=== PATIENT | female | born 1970 | race Caucasian/White ===

== ENCOUNTER 2016-10-21 19:44 | Observation (INO) | payer BC ==
[~2016-10-21] VITALS: Ht 170.2 cm; Wt 86.1 kg
[~2016-10-21 19:44] MED LIST: ALBU1AER9 INH; CYAN10005 PO; DICY20TA10 PO; LEVOIUD; SENN-61 PO
[2016-10-21 20:06] VITALS: Ht 170.2 cm; Wt 86.1 kg
[2016-10-21] MEDS ORDERED: MoRPHine SULFATE 10 MG/ML CARP/VIAL IV STA (22:02)
[2016-10-21] MEDS ORDERED: ONDANSETRON INJ 2 MG/ML 2 ML VIAL IV STA (22:02)
[2016-10-21] MEDS ORDERED: SODIUM CHLORIDE 0.9% 1000ML 1,000 ML IV STA (22:02)
[2016-10-21] MEDS ORDERED: OPTIRAY 320 IV PRN (22:15)
[2016-10-21 22:49] LABS: BASO % 0.8 %; BASO ABS # 0.04 K/uL (0-0.2); COMPLETE YES; HEMATOCRIT 40.2 % (37-47); IG% 0.2 %; LYMPH % 39.3 %; LYMPH ABS # 2.05 K/uL (1.2-3.4); MEAN CELL VOLUME 88.5 fL (80-100); MEAN CORPUSCULAR HEMOGLOBIN 31.5 pg (25-34); MEAN CORPUSCULAR HGB CONC 35.6 g/dl (32-36); MEAN PLATELET VOLUME 9.6 fL (7.4-10.4); MONO % 9.8 %; NEUT % 45.9 %; PLATELET COUNT 208 K/uL (130-400); RED BLOOD COUNT 4.54 M/uL (4.2-5.4); WHITE BLOOD COUNT 5.22 K/uL (4.8-10.8)
[2016-10-21 23:03] LABS: BUN/CREATININE RATIO 17.3 (10-20); CALCIUM 9.3 mg/dl (8.5-10.1); CREATININE 0.63 mg/dl (0.60-1.20); POTASSIUM 3.5 mmol/L (3.5-5.1)
[2016-10-21] MEDS ORDERED: CYCL0.052 OPB (23:07)
[2016-10-21] MEDS ORDERED: FLNIN/ NAE (23:07)
[2016-10-21 23:17] LABS: URINE APPEARANCE CLEAR (CLEAR); URINE BILIRUBIN NEG (NEG); URINE COLOR YELLOW; URINE NITRITE NEG (NEG); URINE SPECIFIC GRAVITY 1.012 (1.000-1.030); UROBILINOGEN NEG (NEG)
[2016-10-21 23:18] LABS: MANUAL MICROSCOPIC REQUIRED? NO; REVIEW REQ? NO
[2016-10-21 23:23] LABS: PREG INTERNAL NEGATIVE QC NEG CLEAR BACKGROUND; PREG INTERNAL POSITIVE QC POS CONTROL LINE
[2016-10-22] MEDS ORDERED: MoRPHine SULFATE 2 MG/ML CARP IV STA (01:02)
[2016-10-22] MEDS ORDERED: DiphenhydrAMINE HCL 50 MG/ML VIAL IV STA (01:44)
[2016-10-22] MEDS ORDERED: FAMOTIDINE 20MG/102 ML D5W IV STA (01:44)
--- NOTE | 2016-10-22 01:49 | EMERGENCY ROOM VISIT NOTE ---
ED Visit Note First contact with patient: 01:38 This Patient was discussed with the physician administrative office assistant, Joaquin Hines PA-C. The pertinent historical and physical exam findings were confirmed. I agree with the studies ordered and with the interpretations of these studies. I agree with the disposition and care plan.
[2016-10-22] MEDS ORDERED: PROPOFOL IV EMULSION 10 MG/ML 20 ML VIAL IV ONE (04:42)
[2016-10-22] MEDS ORDERED: ONDANSETRON INJ 2 MG/ML 2 ML VIAL ONE (04:42)
[2016-10-22] MEDS ORDERED: FENTANYL CITRATE INJ 50 MCG/1 ML 2 ML VIAL ONE ×2 (04:42→05:53)
[2016-10-22] MEDS ORDERED: ROCURONIUM BROMIDE 10 MG/ML 5 ML VIAL ONE (04:42)
[2016-10-22] MEDS ORDERED: DEXAMETHASONE SOD INJ 4 MG/ML VIAL ONE (04:42)
[2016-10-22] MEDS ORDERED: LIDOCAINE HCL 2% 2 ML VIAL (20MG/ML) ONE (04:42)
[2016-10-22] MEDS ORDERED: MIDAZOLAM HCL 1 MG/ML 2ML VIAL ONE (04:42)
[2016-10-22] MEDS ORDERED: MoRPHine SULFATE 2 MG/ML CARP ONE ×3 (04:43→04:48)
--- NOTE | 2016-10-22 04:47 | History and Physical ---
History & Physical Date & Time of Service: Oct 22, 2016 at 04:25 Chief Complaint: Rlq Pain Primary Care Physician: Kyaw Khan M.D. History of Present Illness Source: patient 46 y/o female to ER with a complaint of RLQ pain. she stated that the pain began 3 days ago as an intermittent sharp stabbing pain with each episode lasting seconds to a few minutes. About 3 hours prior to presentation the pain became constant. It is exacerbated by movement. It has not been associated with nausea, vomiting dysuria or hematuria. She has a change in bowel pattern over the last 2 weeks. She stated that she normally goes every 2 to 3 days but has been going about 2 times per day. She has not had diarrhea but the stool has been soft. She reports having had "colitis" on 2 occasions in the past but the pain during those episodes was bilateral and accompanied but bloody bms. She has not had blood with her stool over the last 3 days of her symptoms. She was seen in the ER 01/09 with RLQ pain and the ER note states that she was having a similar change in her bowel habits as to what she is now describing. There was no blood with bms then. She stated that the pain then was not nearly this severe and was not exacerbated by movement. She denies fever and chills. Past Medical/Surgical History Medical Problems: (1) IBS (irritable bowel syndrome) Status: Chronic Family History Diabetes mellitus FH: heart disease FH: lung disease Hypertension Social History Smoking Status: Never Smoker Smokeless Tobacco Use: No Alcohol Use: none Drug Use: none Marital Status: Occupational Status: employed Immunizations History of Influenza Vaccine: Yes Influenza Vaccine Date: May 08, 2011 History of Tetanus Vaccine?: Yes Tetanus Immunization Date: Feb 03, 2011 History of Pneumococcal: No History of Hepatitis B Vaccine: No Allergies Coded Allergies: Penicillins (Verified Allergy, Unknown, UNKNOWN, 10/21/16) Sulfa Drugs (Verified Allergy, Unknown, RASH AND HIVES, 10/21/16) Fexofenadine (Verified Adverse Reaction, Unknown, constipation, 10/21/16) Home Medications Scheduled Cyanocobalamin (Vitamin B-12), 1,000 MCG PO Q2D Cyclosporine (Ophth) (Restasis), 1 DROP OPB BID Scheduled PRN Fluticasone Propionate (Fluticasone Propionate), 1 SPRAY YANDY DAILY PRN for PRN Review of Systems Constitutional: No chills, No fever Respiratory: No cough, No sputum Cardiovascular: No chest pain Abdomen: + problem reported (as per HPI) Genitourinary - Female: + problem reported (as per HPI) Hematologic / Lymphatic: No abnormal bleeding/bruising Integumentary: No rash Physical Exam Vital Signs Date Time Temp Pulse Resp B/P Pulse Ox O2 Delivery O2 Flow Rate FiO2 10/22/16 04:08 93 18 152/70 98 Room Air 10/22/16 02:08 87 18 143/78 100 Room Air 10/22/16 01:12 80 18 143/81 96 Room Air 10/21/16 23:58 36.5 83 18 173/104 100 Room Air 10/21/16 22:58 78 18 139/77 95 Room Air 10/21/16 20:06 36.8 85 18 149/80 99 Room Air General Appearance: WD/WN Head: normocephalic Neck: supple, no adenopathy Respiratory/Chest: chest non-tender, lungs clear Cardiovascular: regular rate, rhythm Abdomen/GI: normal bowel sounds, soft, + tenderness (to mild palation in the RLQ with no tenderness in any of the other quadrants) Back: normal inspection, no CVA tenderness Skin: normal color Diagnostics Laboratory Results Results Past 24 Hours Test 10/21/16 21:40 10/21/16 22:30 Range/Units Urine Color YELLOW Urine Appearance CLEAR CLEAR Urine pH 7.0 4.5-7.5 Urine Specific [place] 1.012 1.000-1.030 Urine Protein NEG NEG Urine Glucose (UA) NEG NEG Urine Ketones NEG NEG Urine Occult Blood NEG NEG Urine Nitrite NEG NEG Urine Bilirubin NEG NEG Urine Urobilinogen NEG NEG Urine Leukocyte Esterase TRACE NEG Urine WBC (Auto) 1-5 0-5 /hpf Urine RBC (Auto) 0-4 0-4 /hpf Urine Hyaline Casts (Auto) 0 0-5 /lpf Urine Epithelial Cells (Auto) 10-20 0-5 /lpf Urine Bacteria (Auto) NEG NEG Urine Test NEG NEG White Blood Count 5.22 4.8-10.8 K/uL Red Blood Count 4.54 4.2-5.4 M/uL Hemoglobin 14.3 12.0-16.0 g/dL Hematocrit 40.2 37-47 % Mean Corpuscular Volume 88.5 80-100 fL Mean Corpuscular Hemoglobin 31.5 25-34 pg Mean Corpuscular Hemoglobin Concent 35.6 32-36 g/dl Platelet Count 208 130-400 K/uL Mean Platelet Volume 9.6 7.4-10.4 fL Neutrophils (%) (Auto) 45.9 % Lymphocytes (%) (Auto) 39.3 % Monocytes (%) (Auto) 9.8 % Eosinophils (%) (Auto) 4.0 % Basophils (%) (Auto) 0.8 % Neutrophils # (Auto) 2.40 1.4-6.5 K/uL Lymphocytes # (Auto) 2.05 1.2-3.4 K/uL Monocytes # (Auto) 0.51 0.11-0.59 K/uL Eosinophils # (Auto) 0.21 0-0.5 K/uL Basophils # (Auto) 0.04 0-0.2 K/uL RDW Standard Deviation 42.1 36.4-46.3 fL RDW Coefficient of Variation 13.1 11.5-14.5 % Immature Granulocyte % (Auto) 0.2 % Immature Granulocyte # (Auto) 0.01 0.00-0.02 K/uL Sodium Level 143 136-145 mmol/L Potassium Level 3.5 3.5-5.1 mmol/L Chloride Level 107 98-107 mmol/L Carbon Dioxide Level 27 21-32 mmol/L Anion Gap 9.0 3-11 mmol/L Blood Urea Nitrogen 11 7-18 mg/dl Creatinine 0.63 0.60-1.20 mg/dl Est Creatinine Clear Calc Drug Dose 124.4 ml/min Estimated GFR () 123.8 Estimated GFR (Non- 106.8 BUN/Creatinine Ratio 17.3 10-20 Random Glucose 80 70-99 mg/dl Calcium Level 9.3 8.5-10.1 mg/dl Total Bilirubin 0.9 0.2-1 mg/dl Direct Bilirubin 0.2 0-0.2 mg/dl Aspartate Amino Transf (AST/SGOT) 15 15-37 U/L Alanine Aminotransferase (ALT/SGPT) 19 12-78 U/L Alkaline Phosphatase 78 45-117 U/L Total Protein 7.5 6.4-8.2 gm/dl Albumin 4.0 3.4-5.0 gm/dl Lipase 150 73-393 U/L Diagnostic Radiology CT scan of the abdomen and pelvis shows a 1 cm appendix that is fluid filled but there is no periappendiceal fat stranding. There may be thickening of the ascending colon and transverse colon wall but it may be due to the fact that the colon is not dilated. Impression Assessment and Plan This patient has RLQ pain and tenderness that is more severe than her episode in 01/09. CT scan shows a 1 cm appendix which was 8 mm then but there is no contrast in the appendix on this exam. There may be wall thickening in the ascending and transverse colons but it may just be due to lack of distension. She has a history of "colitis" but there was hematochezia with those 2 episodes which she does not have at the present time. I explained that the 2 options at this point would be to perform an appendectomy or admit and place on antibiotics. I explained the possible complications of appendectomy especially if there is colitis in the area where the appendix is removed. They also understand the possible complications of waiting if this is appendicitis. I explained that I would plan a laparoscopic appendectomy and the possible need to convert to an open procedure. I answered their questions. She has signed a consent form. I also asked her to sign the consent as well as he was present during the entire encounter.
[2016-10-22] MEDS ORDERED: HEPARIN SOD (PORCINE) 1000 UNIT/ML 10 ML VIAL ONE (05:03)
[2016-10-22] MEDS ORDERED: CEFAZOLIN SOD 1 GM VIAL ONE (05:03)
[2016-10-22] MEDS ORDERED: BUPIVACAINE 0.5 % 5 MG/1 ML MPF 30ML VIAL ONE (05:03)
[2016-10-22] MEDS ORDERED: CEFAZOLIN IV 2,000 MG/60 ML D5W IV ONE (05:36)
--- NOTE | 2016-10-22 06:40 | [facility] Post Operative Brief Note ---
Immediate Operative Summary Operative Date Oct 22, 2016. Pre-Operative Diagnosis Acute Appendicitis Post-Operative Diagnosis Acute Appendicitis Procedure(s) Performed Laparoscopic Appendectomy Surgeon Dr. Harvinder Malone Point Of Care Technician Surgeon(s) None Estimated Blood Loss 5 ml Findings See dictation Specimens A: Appendix Drains None Anesthesia General Complication(s) None Disposition Recovery Room / PACU
[2016-10-22] MEDS ORDERED: MoRPHine SULFATE 4 MG/ML 1 ML CARP\\VIAL IV PRN (06:45)
[2016-10-22] MEDS ORDERED: ONDANSETRON INJ 2 MG/ML 2 ML VIAL IV PRN ×2 (06:45→07:00)
--- NOTE | 2016-10-22 06:45 | Discharge Instructions ---
Discharge Instructions Date of Service Oct 22, 2016. Admission Reason for Admission: Rlq Pain Discharge Discharge Diagnosis / Problem: Appendicitis Discharge Goals Goal(s): Decrease discomfort Activity Recommendations Activity Limitations: per Instructions/Follow-up section Lifting Limitations: no more than 10 pounds (for 2 weeks) Shower/Bathe: tomorrow (Shower only) . Instructions / Follow-Up Instructions / Follow-Up Post-Surgical ~ Discharge Instructions Activity Recommendations: - lifting limitation: (10 pounds for 2 weeks), - exercise/sex/sports limit: (nonstrenuous for 2 weeks), - driving or machine use limit: (none for 1 week), - Shower/bathe limit: (may shower beginning tomorrow) Diet: - Resume previous diet SPECIAL CARE INSTRUCTIONS: - May shower in 24 hours. Let water run over area and pat dry. - Leave steri strips on for one week. - Call the surgeon's office with any questions or concerns - - (ex. temperature higher than 101 degrees F, excessive bleeding or pain). MEDICATIONS: - Resume previous medications unless instructed otherwise by your surgeon. - Ibuprofen 600 mg every 6 hours with food - Percocet 1 every 4 hours, as needed for pain FOLLOW UP VISIT: - If not already scheduled, please call the office to schedule a two week follow-up appointment. Office number Current Hospital Diet Patient's current hospital diet: Regular Diet Discharge Diet Recommended Diet: Regular Diet Procedures Procedures Performed: Laparoscopic Appendectomy Pending Studies Studies pending at discharge: no Medical Emergencies . Who to Call and When: Medical Emergencies: If at any time you feel your situation is an emergency, please call 911 immediately. . Non-Emergent Contact Non-Emergency issues call your: Primary Care Provider, Surgeon Call Non-Emergent contact if: your pain is worsening, wound has increased redness, wound has increased pain . "Provider Documentation" section prepared by Harvinder Malone. VTE Core Measure Inpt VTE Proph given/why not?: Treatment not indicated
[2016-10-22] MEDS ORDERED: LACTATED RINGER'S 1000ML 1,000 ML IV PRN (06:48)
[2016-10-22] MEDS ORDERED: METOCLOPRAMIDE HCL INJ 5 MG/ML 2 ML VIAL IV PRN (07:00)
[2016-10-22] MEDS ORDERED: FENTANYL CITRATE INJ 50 MCG/1 ML 2 ML VIAL IV PRN (07:00)
[2016-10-22] MEDS ORDERED: KETOROLAC TROMETHAMINE 30 MG/ML VIAL IV. PRN (07:00)
--- NOTE | 2016-10-22 07:26 | Anesthesiology Progress Note ---
Anesthesia Post Op Note Date & Time Oct 22, 2016 at 07:26 Vital Signs Pain Intensity: 0 Vital Signs Past 12 Hours Date Time Temp Pulse Resp B/P Pulse Ox O2 Delivery O2 Flow Rate FiO2 10/22/16 07:10 78 14 130/96 97 Room Air 10/22/16 07:00 36.4 75 14 131/74 97 Room Air 10/22/16 06:50 36.5 77 22 136/76 99 Room Air 10/22/16 06:43 36.6 65 14 142/78 100 Mask 10 10/22/16 05:12 86 18 139/76 97 10/22/16 04:08 93 18 152/70 98 Room Air 10/22/16 02:08 87 18 143/78 100 Room Air 10/22/16 01:12 80 18 143/81 96 Room Air 10/21/16 23:58 36.5 83 18 173/104 100 Room Air 10/21/16 22:58 78 18 139/77 95 Room Air 10/21/16 20:06 36.8 85 18 149/80 99 Room Air Notes Mental Status: alert / awake / arousable, participated in evaluation Pt Amnestic to Procedure: Yes Nausea / Vomiting: adequately controlled Pain: adequately controlled Airway Patency, RR, SpO2: stable & adequate BP & HR: stable & adequate Hydration State: stable & adequate Anesthetic Complications: no major complications apparent Pt did well.
--- NOTE | 2016-10-22 07:33 | DIAGNOSTIC IMAGING REPORT ---
CT OF THE ABDOMEN AND PELVIS WITH CONTRAST CLINICAL HISTORY: Severe right lower quadrant abdominal pain. COMPARISON STUDY: CT of the abdomen and pelvis January 05, 2015 TECHNIQUE: Following IV administration of 91 mL of [id number]-[id number], axial images of the abdomen and pelvis were obtained from the lung bases to the proximal femurs. Images were reviewed in the axial, sagittal, and coronal planes. IV contrast was administered without complication. Oral contrast was administered. CT DOSE: 727.20 mGy.cm FINDINGS: Lung bases are clear. There is no pneumatosis, free air or portal venous gas. There is no biliary ductal dilatation status post cholecystectomy. The liver, spleen, adrenal glands and pancreas are normal. There is no hydronephrosis. The caliber and wall thickness of small and large bowel are normal. The appendix is mildly dilated, measuring 1 cm in caliber. There is no periappendiceal infiltration. Caliber of the appendix is similar to prior exams although there is no significant oral contrast within the appendix on this exam. An intrauterine device is in place. There is no significant skeletal abnormality. No free fluid is present. IMPRESSION: Mild appendiceal dilatation, similar to prior exams. No periappendiceal infiltration. No convincing evidence for acute appendicitis. Early acute appendicitis would be difficult to exclude and therefore clinical correlation with evidence for acute appendicitis is recommended. Electronically signed by: Amadou Hicks M.D. 10/22/2016 7:32 AM Dictated Date/Time: 10/22/2016 7:25 AM
[2016-10-22 07:40] VITALS: BP 133/79; PULSE 75; TEMP 36.7; O2SAT 94
[2016-10-22] MEDS ORDERED: NURSING VERBAL MED ORDER ONE (08:00)
[2016-10-22] MEDS: D5W AND 1/2NSS + 20MEQ KCL 1,000 ML IV SCH ×2 (08:10→17:30)
[2016-10-22] MEDS ORDERED: DiphenhydrAMINE HCL 50 MG/ML VIAL IV PRN (08:15)
--- NOTE | 2016-10-22 08:58 | OPERATIVE REPORT ---
DATE OF OPERATION: 10/22/2016 PREOPERATIVE DIAGNOSIS: Appendicitis. POSTOPERATIVE DIAGNOSIS: Same. PROCEDURE: Laparoscopic appendectomy. SURGEON: Dr. Malone. FINDINGS: The appendix was distended and firm in its distal two-thirds. The proximal 2 cm were normal. The cecum appeared normal. There did not appear to be any inflammatory change of the ascending colon. The base of the appendix and the cecum at the base of the appendix appeared normal. The small bowel that was visible appeared normal. There was no evidence of perforation or abscess. TECHNIQUE: The patient was given a general anesthetic and the area was prepped and draped in the usual sterile fashion. Transverse incision was made below the umbilicus, carried down through the subcutaneous tissue to the fascia which was grasped with 2 Mark clamps and incised between. The peritoneum was identified, incised, and the introducer was placed bluntly. The abdomen was then insufflated to a pressure of 15 mmHg with carbon dioxide. The lower midline introducer was placed under direct vision through small skin incisions. The patient was positioned and the small bowel was retracted towards the midline. That allowed me to visualize the appendix. The left lower quadrant introducer was placed under direct vision through small skin incision. Traction was placed anteriorly on the appendix and I was able to establish a plane between the appendix and the mesoappendix at the base. The mesoappendix was divided with the EndoGIA stapler. That allowed me to confirm that the base was free. The appendix was then amputated off the cecum using the EndoGIA stapler. The appendix was placed into an Endobag and brought out through the left lower quadrant introducer site. That introducer was replaced and the right lower quadrant was irrigated and irrigation removed. The 2 staple lines were inspected and there was no bleeding. Further irrigation was performed that was removed. The staple lines were again inspected and again there was no bleeding. The gas was allowed to escape and the introducers were removed. The fascia of the umbilical introducer site was closed with interrupted 0 Vicryl and skin of all the incisions were closed with 4-0 Monocryl in either an interrupted or running subcuticular fashion. The skin was anesthetized with 0.5% Marcaine. The skin was cleansed, dried, benzoin placed, Steri-Strips applied. Estimated blood loss was 5 mL. Sponge, needle and instrument counts were correct prior to closure. The patient tolerated the surgical procedure without complication and was transferred to recovery. I attest to the content of the Intraoperative Record and any orders documented therein. Any exceptio ns are noted below.
[2016-10-22] MEDS ORDERED: IV FLUIDS COMPLETED PRN (09:15)
[2016-10-22 09:40] VITALS: BP 119/74; PULSE 68; O2SAT 97
[2016-10-22] MEDS: OXYCODONE/ACETAMINOPHEN 5-325 TAB PO PRN ×2 (10:43→14:45)
[2016-10-22 10:59] VITALS: BP 128/82; PULSE 69; O2SAT 96
--- NOTE | 2016-10-22 14:32 | EMERGENCY ROOM VISIT NOTE ---
ED Visit Note First contact with patient: 21:41 Chief Complaint: Abdominal pain. History of Present Illness: Ms. Patterson is a 46 year-old white female who ambulates into the ED accompanied by her complaining of right quadrant abdominal pain. Historically patient reports she is status post cholecystectomy and colitis. Patient reports a gradual onset of right lower quadrant abdominal pain that started approximately 3 days ago. Her discomfort was initially intermittent until a few hours before she arrived in the ED when it became severe and constant. She describes her pain as a stabbing sensation. She rates her discomfort 7/10. The pain is nonradiating. The pain worsens with movements at the waist. She has not identified any alleviating factors related to the pain. She has not taken any medications for pain prior to arrival at the hospital. Associated with her pain she reports that she has been having chills, nausea without vomiting and a decreased appetite. Patient denies fevers, sweats, skin eruptions, skin color changes, upper respiratory tract symptoms, shortness of breath, chest pain, diarrhea, constipation, rectal bleeding, black/tarry stools, urinary symptoms, hematuria, vaginal bleeding, vaginal discharge, back/flank pain. Review of Systems: As noted above in history of present illness. All body systems were reviewed and found to be negative as noted above. Past Medical History: As noted above. Current Medications: Multivitamins, Restasis, nasal steroids. Allergies to Medications: Fexofenadine, penicillin, sulfa. Social History: Patient is currently employed; she feels safe in her home environment; she denies tobacco use. Physical Examination: Vital Signs: Date Time Temp Pulse Resp B/P Pulse Ox O2 Delivery O2 Flow Rate FiO2 10/22/16 02:08 87 18 143/78 100 Room Air 10/22/16 01:12 80 18 143/81 96 Room Air 10/21/16 23:58 36.5 83 18 173/104 100 Room Air 10/21/16 22:58 78 18 139/77 95 Room Air 10/21/16 20:06 36.8 85 18 149/80 99 Room Air GENERAL: 46-year-old female in moderate distress due to pain, nontoxic-appearing , afebrile and hemodynamically stable. NEUROLOGICAL: Awake, alert and oriented to person, place and time. Answering questions appropriately and following commands. Normal gait. Good hand eye coordination. SKIN: Warm, dry and pink. No soft tissue eruptions or trauma noted. HEENT: Atraumatic and normocephalic. PERRLA. Sclera white and conjunctiva pink. Oral cavity moist and pink. Pharynx is nonerythematous or edematous. Speech normal. No lymphadenopathy. Trachea midline. No jugular venous distention. BACK: No tenderness over the bony spine. No CVA tenderness. THORAX: Lungs sounds are clear to auscultation and equal bilaterally with symmetrical chest wall. No wheezing, rales or rhonchi. No crepitus, tenderness , subcutaneous air or deformities noted. HEART: Regular rate and rhythm. No gallops, rubs or murmurs are appreciated. ABDOMEN: Flat and soft moderate tenderness over McBurney's point with guarding. Positive bowel sounds in all quadrants. No rigidity or organomegaly. Positive psoas sign. Negative heel tap and Rovsing tests. EXTREMITIES: Moves all extremities well on command and with purpose. All distal neurovascular statuses are intact and equal bilaterally. ED Course: Patient is assessed as noted above. Laboratory Testing: Test 10/21/16 21:40 10/21/16 22:30 Range/Units Urine Color YELLOW Urine Appearance CLEAR CLEAR Urine pH 7.0 4.5-7.5 Urine Specific [place] 1.012 1.000-1.030 Urine Protein NEG NEG Urine Glucose (UA) NEG NEG Urine Ketones NEG NEG Urine Occult Blood NEG NEG Urine Nitrite NEG NEG Urine Bilirubin NEG NEG Urine Urobilinogen NEG NEG Urine Leukocyte Esterase TRACE NEG Urine WBC (Auto) 1-5 0-5 /hpf Urine RBC (Auto) 0-4 0-4 /hpf Urine Hyaline Casts (Auto) 0 0-5 /lpf Urine Epithelial Cells (Auto) 10-20 0-5 /lpf Urine Bacteria (Auto) NEG NEG Urine Test NEG NEG White Blood Count 5.22 4.8-10.8 K/uL Red Blood Count 4.54 4.2-5.4 M/uL Hemoglobin 14.3 12.0-16.0 g/dL Hematocrit 40.2 37-47 % Mean Corpuscular Volume 88.5 80-100 fL Mean Corpuscular Hemoglobin 31.5 25-34 pg Mean Corpuscular Hemoglobin Concent 35.6 32-36 g/dl Platelet Count 208 130-400 K/uL Mean Platelet Volume 9.6 7.4-10.4 fL Neutrophils (%) (Auto) 45.9 % Lymphocytes (%) (Auto) 39.3 % Monocytes (%) (Auto) 9.8 % Eosinophils (%) (Auto) 4.0 % Basophils (%) (Auto) 0.8 % Neutrophils # (Auto) 2.40 1.4-6.5 K/uL Lymphocytes # (Auto) 2.05 1.2-3.4 K/uL Monocytes # (Auto) 0.51 0.11-0.59 K/uL Eosinophils # (Auto) 0.21 0-0.5 K/uL Basophils # (Auto) 0.04 0-0.2 K/uL RDW Standard Deviation 42.1 36.4-46.3 fL RDW Coefficient of Variation 13.1 11.5-14.5 % Immature Granulocyte % (Auto) 0.2 % Immature Granulocyte # (Auto) 0.01 0.00-0.02 K/uL Sodium Level 143 136-145 mmol/L Potassium Level 3.5 3.5-5.1 mmol/L Chloride Level 107 98-107 mmol/L Carbon Dioxide Level 27 21-32 mmol/L Anion Gap 9.0 3-11 mmol/L Blood Urea Nitrogen 11 7-18 mg/dl Creatinine 0.63 0.60-1.20 mg/dl Est Creatinine Clear Calc Drug Dose 124.4 ml/min Estimated GFR () 123.8 Estimated GFR (Non- 106.8 BUN/Creatinine Ratio 17.3 10-20 Random Glucose 80 70-99 mg/dl Calcium Level 9.3 8.5-10.1 mg/dl Total Bilirubin 0.9 0.2-1 mg/dl Direct Bilirubin 0.2 0-0.2 mg/dl Aspartate Amino Transf (AST/SGOT) 15 15-37 U/L Alanine Aminotransferase (ALT/SGPT) 19 12-78 U/L Alkaline Phosphatase 78 45-117 U/L Total Protein 7.5 6.4-8.2 gm/dl Albumin 4.0 3.4-5.0 gm/dl Lipase 150 73-393 U/L Contrast Abdominal/Pelvic CT: Was reviewed by myself and read by the radiologist showing a 1 cm white appendix with no surround inflammatory changes however early appendicitis could not be excluded and mild wall thickening involving portions of the ascending and transverse colon of questionable concern for colitis or possible incomplete distention of the bowel and there is no surrounding inflammatory changes. No bowel obstructions or diverticulitis. Normal-appearing pancreas and prior cholecystectomy noted. No renal calculi or hydronephrosis. No free air or free fluid. No other acute diseases. IUD in place. Patient was hydrated with normal saline and she was given 4 mg of Zofran IV; she was offered morphine multiple times and refused. After her CAT scan was returned she did request a small amount of morphine and was given 2 mg of morphine IV. After patient did receive her IV morphine she developed severe cramping sensation in the upper abdomen. I did review this with Dr. Ryan and she was given 12.5 mg of Benadryl IV and 10 mg of Pepcid IV; was felt this could possibly be a histamine reaction to the morphine. Patient was reassessed multiple times during her stay in the emergency department. Patient's case was reviewed with Dr. Ryan; we agreed on diagnostic approach, treatment, disposition and plan. Patient's case was consulted with Dr. Harvinder Malone, general surgery; he reported he would come and surgically evaluate the patient. Patient was educated about tonight's findings. Clinical Impression: Acute right lower quadrant abdominal pain. Decision-Making: Initially my differential diagnosis I considered appendicitis, ovarian torsion, ovarian cyst rupture, inflammation of the cecum, bowel obstruction, kidney stone and other causes. Disposition and Care: Patient's care was transferred to Dr. Malone; please see his notes and orders for final disposition and plan.
[2016-10-22 15:26] VITALS: BP 138/80; PULSE 63; TEMP 36.6; O2SAT 98
[2016-10-22 20:18] VITALS: BP 127/72; PULSE 72; TEMP 36.9; O2SAT 96
[2016-10-22 23:12] VITALS: BP 109/62; PULSE 69; TEMP 36.7; O2SAT 95
[2016-10-23] MEDS: OXYCODONE/ACETAMINOPHEN 5-325 TAB PO PRN ×2 (01:28→08:05)
[2016-10-23 03:00] VITALS: BP 131/74; PULSE 76; TEMP 36.9; O2SAT 97
[2016-10-23] MEDS: D5W AND 1/2NSS + 20MEQ KCL 1,000 ML IV SCH (03:38)
--- NOTE | 2016-10-23 06:38 | Surgery Progress Note ---
Surgery Progress Note Date of Service Oct 23, 2016. Subjective Post OP Day: 1 + diet (tolerated regular diet), No nausea, No vomiting Incisional discomfort only, preop pain has resolved Objective Vital Signs: Date Time Temp Pulse Resp B/P Pulse Ox O2 Delivery O2 Flow Rate FiO2 10/23/16 03:00 36.9 76 17 131/74 97 Room Air 10/22/16 23:15 Room Air 10/22/16 23:12 36.7 69 15 109/62 95 Room Air 10/22/16 20:18 36.9 72 18 127/72 96 Room Air 10/22/16 20:01 Room Air 10/22/16 15:26 36.6 63 18 138/80 98 Room Air 10/22/16 10:59 69 18 128/82 96 10/22/16 09:40 68 18 119/74 97 10/22/16 08:30 Room Air 10/22/16 07:40 Room Air 10/22/16 07:40 36.7 75 133/79 94 Room Air 10/22/16 07:40 94 Room Air 10/22/16 07:10 78 14 130/96 97 Room Air 10/22/16 07:00 36.4 75 14 131/74 97 Room Air 10/22/16 06:50 36.5 77 22 136/76 99 Room Air 10/22/16 06:43 36.6 65 14 142/78 100 Mask 10 Abdomen: normal bowel sounds, non distended, soft Incision(s): clean, dry, intact, no erythema, no drainage Assessment & Plan S/P laparoscopic appendectomy Doing well Can D/C to home. Instructions discussed
[2016-10-23 07:05] VITALS: BP 124/70; PULSE 66; TEMP 36.9; O2SAT 96
[2016-10-23 07:58] VITALS: BP 124/70; PULSE 66; TEMP 36.9; O2SAT 96
--- NOTE | 2016-10-25 12:04 | Discharge Summary ---
Discharge Summary Dates Admission Date / Time: Oct 22, 2016 at 06:43 Discharge Date: Oct 23, 2016 Dispostion / Condition Discharge Disposition: Home Condition at Discharge: Good Principal Diagnosis (1) Appendicitis (2) Abdominal pain Consultations / Procedures Consultations: None Procedures: Laparoscopic Appendectomy Pending Studies / Follow-Up None Medication Reconciliation Continued Medications: Cyanocobalamin (Vitamin B-12) 1,000 Mcg Tab 1000 MCG PO Q2D, 0 Refills Cyclosporine (Ophth) (Restasis) 0.05 % Emu 1 DROP OPB BID, #60 Fluticasone Propionate (Fluticasone Propionate) 120 Sprays/6000 Mcg Inha 1 SPRAY YANDY DAILY PRN for PRN, #16 Admission HPI Per the Admitting provider: 46 y/o female to ER with a complaint of RLQ pain. she stated that the pain began 3 days ago as an intermittent sharp stabbing pain with each episode lasting seconds to a few minutes. About 3 hours prior to presentation the pain became constant. It is exacerbated by movement. It has not been associated with nausea, vomiting dysuria or hematuria. She has a change in bowel pattern over the last 2 weeks. She stated that she normally goes every 2 to 3 days but has been going about 2 times per day. She has not had diarrhea but the stool has been soft. She reports having had "colitis" on 2 occasions in the past but the pain during those episodes was bilateral and accompanied but bloody bms. She has not had blood with her stool over the last 3 days of her symptoms. She was seen in the ER 01/09 with RLQ pain and the ER note states that she was having a similar change in her bowel habits as to what she is now describing. There was no blood with bms then. She stated that the pain then was not nearly this severe and was not exacerbated by movement. She denies fever and chills. Admission Exam Per the Admitting provider: General Appearance: WD/WN Head: normocephalic Neck: supple, no adenopathy Respiratory/Chest: chest non-tender, lungs clear Cardiovascular: regular rate, rhythm Abdomen/GI: normal bowel sounds, soft, + tenderness (to mild palation in the RLQ with no tenderness in any of the other quadrants) Back: normal inspection, no CVA tenderness Skin: normal color Hospital Course (1) Appendicitis Patient was taken to operating room for laparoscopic appendectomy. Patient tolerated procedure well and was transferred to Med/Surg floor for post op care. She was started on Regular diet and IV pain medication along with oral Percocet prn pain. Her post op pain was minimal and controlled pre-operative pain resolved on POD # 1. Vitals were stable and she was discharged home on POD # 1. Overall hospital course was uneventful. Total Time Total Time Spent (min): 15 Discharge Instructions As given Copies To Primary Care Provider: Kyaw Khan M.D.. Problem Qualifiers (1) Appendicitis: Appendicitis type: acute appendicitis
== END 2016-10-23 08:20 | disposition home or self-care (01) ==
LOC: ENRESERVTM → ENRESERVDT → C.EDB 19:45 → C.MSW 10-22 06:43
PROVIDERS: ADMIT Surgery; ATTEND Surgery
DX: R10.31 Right lower quadrant pain (principal); Z83.3 Family history of diabetes mellitus; Z82.49 Family history of ischemic heart disease and other diseases of the circulatory system; Z83.6 Family history of other diseases of the respiratory system

== ENCOUNTER 2017-07-04 12:41 | Emergency (ER) | payer BC ==
[~2017-07-04] VITALS: Ht 170.2 cm; Wt 87.6 kg
[~2017-07-04 12:41] MED LIST changes: -ALBU1AER9 INH; +CYCL0.052 OPB; -DICY20TA10 PO; +FLNIN/ NAE; -LEVOIUD; -SENN-61 PO
[2017-07-04 13:07] VITALS: TEMP 36.8; Ht 170.2 cm; Wt 87.6 kg
[2017-07-04 13:52] LABS: BASO % 0.8 %; BASO ABS # 0.04 K/uL (0-0.2); COMPLETE YES; HEMATOCRIT 41.6 % (37-47); IG% 0.2 %; LYMPH % 30.7 %; LYMPH ABS # 1.45 K/uL (1.2-3.4); MEAN CELL VOLUME 91.2 fL (80-100); MEAN CORPUSCULAR HEMOGLOBIN 31.8 pg (25-34); MEAN CORPUSCULAR HGB CONC 34.9 g/dl (32-36); MEAN PLATELET VOLUME 9.6 fL (7.4-10.4); MONO % 8.7 %; NEUT % 56.6 %; PLATELET COUNT 227 K/uL (130-400); RED BLOOD COUNT 4.56 M/uL (4.2-5.4); WHITE BLOOD COUNT 4.73 K/uL (4.8-10.8)
--- NOTE | 2017-07-04 13:54 | EMERGENCY ROOM VISIT NOTE ---
History First contact with patient: 13:37 Chief Complaint: DIZZY Stated Complaint: LIGHTHEADED/DIZZY,FEELS LIKE HEART RACING, SENT Nursing Triage Summary: Patient triaged in room. Patient states "I've been having dizziness and lightheadeness since Friday. On Friday, I had pain im my stomach." History of Present Illness The patient is a 46 year old female who presents to the Emergency Room with complaints of lightheadedness that is worse with standing for the last 4 days. She denies any spinning sensation. She denies any headache or changes in vision. She reports eating and drinking normally. She has not been sick recently. No nausea. She denies any chest pain or difficulty breathing. She does occasionally feel like her heart is racing. She has experienced this in the past. She denies any new medications. Review of Systems 10 system review performed and negative unless noted in HPI or below Past Medical/Surgical History Medical Problems: (1) Appendicitis (2) IBS (irritable bowel syndrome) Family History Diabetes mellitus FH: heart disease FH: lung disease Hypertension Social History Smoking Status: Never Smoker Alcohol Use: none Drug Use: none Marital Status: Housing Status: lives with family Occupation Status: employed Current/Historical Medications Scheduled Probiotic Product (Probiotic), 1 CAP PO DAILY Scheduled PRN Meclizine Hcl (Meclizine Hcl), 1 TAB PO TID PRN for Dizziness or Vertigo Physical Exam Vital Signs Date Time Temp Pulse Resp B/P (MAP) Pulse Ox O2 Delivery O2 Flow Rate FiO2 07/04/17 16:46 80 18 134/79 96 Room Air 07/04/17 15:45 84 16 131/94 98 Room Air 07/04/17 14:41 84 17 98 07/04/17 14:30 134/86 07/04/17 14:11 86 18 96 07/04/17 14:07 160/88 07/04/17 14:06 159/91 07/04/17 14:04 78 18 149/85 99 Room Air 84 159/91 89 160/88 07/04/17 14:04 149/85 07/04/17 14:02 87 07/04/17 14:00 149/87 07/04/17 13:34 74 18 128/82 97 Room Air 07/04/17 13:07 36.8 84 18 135/82 98 Room Air Physical Exam VITALS: Vitals are noted on the nurse's note and reviewed by myself. Vital signs stable. GENERAL: 46-year-old female, in no acute distress, nondiaphoretic, well- developed well-nourished. SKIN: The skin was without rashes, erythema, edema, or bruising. HEAD: Normocephalic atraumatic. EYES: Pupils equal round and reactive to light and accommodation. Conjunctivae without injection, sclerae without icterus. Extraocular movements intact. MOUTH: Mucous membranes dry NECK: Supple without nuchal rigidity. No lymphadenopathy. No carotid bruit auscultated bilaterally. Cervical spine is nontender. No JVD. HEART: Regular rate and rhythm without murmurs gallops or rubs. LUNGS: Clear to auscultation bilaterally without wheezes, rales or rhonchi. No accessory muscle use. ABDOMEN: Positive bowel sounds x 4.Soft, nontender, without organomegaly. No guarding or rebound tenderness. MUSCULOSKELETAL: Trace pitting edema in the lower extremities left greater than right. No erythema or calf tenderness appreciated. Strength 5/5 throughout. NEURO: Patient was alert and oriented to person place and time. Cerebellar function intact. Cranial nerves grossly intact. Normal sensation to touch. No focal neurological deficits. Medical Decision & Procedures ER Provider Diagnostic Interpretation: CT head without contrast Patient Name: NOEMI WESLEY Unit Number: [id number] Dictated: 07/04/171601 Transcribed: 07/04/171601 ANTIONETTE Printed Date/Time: [~ rep prt dt]/[~ rep prt tm] [~ rep ct labl] - [~ rep ct ivnm] [facility] Radiology Department [place], [place] [id number] Dictated: 07/04/171601 Transcribed: 07/04/171601 ANTIONETTE Printed Date/Time: [~ rep prt dt]/[~ rep prt tm] [~ rep ct labl] - [~ rep ct ivnm] IMPRESSION: No acute intracranial findings. Electronically signed by: Amadou Hicks M.D. 07/04/2017 4:06 PM Dictated Date/Time: 07/04/2017 4:02 PM The status of this report is Signed. Draft = Not yet reviewed or approved by Radiologist. Signed = Reviewed and approved by Radiologist. <AttendingPhy></AttendingPhy> <FamilyPhy>Kyaw Khan M.D.</FamilyPhy> < PrimaryPhy>Kyaw Khan M.D.</PrimaryPhy> <UnitNumber>[id number]</UnitNumber> < VisitNumber>[id number]</VisitNumber> <PatientName>NOEMI WESLEY</ PatientName> <DateOfBirth>1970</DateOfBirth> <Location>[facility]</Location> < ServiceDate>07/04/17</ServiceDate> <MNE>ESINDI</MNE> <OrderingPhy>Luanne Gudino PA-C</OrderingPhy> <OrderingPhyMNE>f rep ord dr thompson</OrderingPhyMNE> < DictatingPhyMNE>f rep dict dr thompson</DictatingPhyMNE> <CCListMNE>f rep ct mne</ CCListMNE> <AdmittingPhyMNE>f pt admit dr thompson</AdmittingPhyMNE> <AttendingPhyMNE >f pt attend dr thompson</AttendingPhyMNE> <ConsultingPhyMNE>f pt consult dr thompson</ConsultingPhyMNE> <FamilyPhyMNE>f pt fam dr thompson</FamilyPhyMNE> <OtherPhyMNE>f pt other dr thompson</OtherPhyMNE> < PrimaryPhyMNE>f pt prim care dr thompson</PrimaryPhyMNE> <ReferringPhyMNE>f pt referring dr thompson</ReferringPhyMNE> Chest x-ray IMPRESSION: Negative chest. The above report was generated using voice recognition software. It may contain grammatical, syntax or spelling errors. Electronically signed by: Harvinder Diane M.D. 07/04/2017 1:54 PM Laboratory Results 07/04/17 13:19 Red Blood Count 4.56, Mean Corpuscular Volume 91.2, Mean Corpuscular Hemoglobin 31.8, Mean Corpuscular Hemoglobin Concent 34.9, Mean Platelet Volume 9.6, Neutrophils (%) (Auto) 56.6, Lymphocytes (%) (Auto) 30.7, Monocytes (%) (Auto) 8.7, Eosinophils (%) (Auto) 3.0, Basophils (%) (Auto) 0.8, Neutrophils # (Auto) 2.68, Lymphocytes # (Auto) 1.45, Monocytes # (Auto) 0.41, Eosinophils # (Auto) 0.14, Basophils # (Auto) 0.04 07/04/17 13:19 Test 07/04/17 13:19 White Blood Count 4.73 K/uL (4.8-10.8) Red Blood Count 4.56 M/uL (4.2-5.4) Hemoglobin 14.5 g/dL (12.0-16.0) Hematocrit 41.6 % (37-47) Mean Corpuscular Volume 91.2 fL (80-100) Mean Corpuscular Hemoglobin 31.8 pg (25-34) Mean Corpuscular Hemoglobin Concent 34.9 g/dl (32-36) Platelet Count 227 K/uL (130-400) Mean Platelet Volume 9.6 fL (7.4-10.4) Neutrophils (%) (Auto) 56.6 % Lymphocytes (%) (Auto) 30.7 % Monocytes (%) (Auto) 8.7 % Eosinophils (%) (Auto) 3.0 % Basophils (%) (Auto) 0.8 % Neutrophils # (Auto) 2.68 K/uL (1.4-6.5) Lymphocytes # (Auto) 1.45 K/uL (1.2-3.4) Monocytes # (Auto) 0.41 K/uL (0.11-0.59) Eosinophils # (Auto) 0.14 K/uL (0-0.5) Basophils # (Auto) 0.04 K/uL (0-0.2) RDW Standard Deviation 43.5 fL (36.4-46.3) RDW Coefficient of Variation 13.1 % (11.5-14.5) Immature Granulocyte % (Auto) 0.2 % Immature Granulocyte # (Auto) 0.01 K/uL (0.00-0.02) Urine Color YELLOW Urine Appearance CLEAR (CLEAR) Urine pH 7.0 (4.5-7.5) Urine Specific [place] 1.013 (1.000-1.030) Urine Protein NEG (NEG) Urine Glucose (UA) NEG (NEG) Urine Ketones NEG (NEG) Urine Occult Blood NEG (NEG) Urine Nitrite NEG (NEG) Urine Bilirubin NEG (NEG) Urine Urobilinogen NEG (NEG) Urine Leukocyte Esterase TRACE (NEG) Urine WBC (Auto) 1-5 /hpf (0-5) Urine RBC (Auto) 0-4 /hpf (0-4) Urine Hyaline Casts (Auto) 0 /lpf (0-5) Urine Epithelial Cells (Auto) 10-20 /lpf (0-5) Urine Bacteria (Auto) NEG (NEG) Anion Gap 3.0 mmol/L (3-11) Est Creatinine Clear Calc Drug Dose 129.6 ml/min Estimated GFR () 125.1 Estimated GFR (Non- 108.0 BUN/Creatinine Ratio 19.5 (10-20) Calcium Level 9.0 mg/dl (8.5-10.1) Total Bilirubin 0.8 mg/dl (0.2-1) Aspartate Amino Transf (AST/SGOT) 14 U/L (15-37) Alanine Aminotransferase (ALT/SGPT) 25 U/L (12-78) Alkaline Phosphatase 94 U/L (45-117) Total Creatine Kinase 81 U/L (26-192) Creatine Kinase MB 1.0 ng/ml (0.5-3.6) Creatine Kinase MB Ratio 1.2 (0-3.0) Troponin I < 0.015 ng/ml (0-0.045) Total Protein 7.9 gm/dl (6.4-8.2) Albumin 4.1 gm/dl (3.4-5.0) Globulin 3.8 gm/dl (2.5-4.0) Albumin/Globulin Ratio 1.1 (0.9-2) Thyroid Stimulating Hormone (TSH) 1.910 uIu/ml (0.300-4.500) Medications Administered Medications (Trade) Dose Ordered Sig/Jac Route Start Time Stop Time Status Last Admin Dose Admin Sodium Chloride 1,000 ml @ 999 mls/hr Q1H1M ONCE IV 07/04/17 14:00 07/04/17 15:00 DC 07/04/17 14:23 999 MLS/HR Meclizine HCl (Antivert Tab) 25 mg NOW STAT PO 07/04/17 15:20 07/04/17 15:22 DC 07/04/17 15:46 25 MG ECG Indication: other Rate (beats per minute): 83 Rhythm: normal sinus Findings: other (left axis deviation) ED Course Patient was seen and examined Vital signs including blood pressure were reviewed medications list was verified with patient Labs were obtained, and a saline lock was established An EKG was performed. The patient was put on a monitor. She was hydrated with 1 L of normal saline. Upon reevaluation, the patient was still complaining of dizziness. She was given 1 dose of meclizine 25 mg by mouth. We discussed the findings of her workup. A CT of the head was performed and reviewed. The findings were discussed with the patient. She was feeling better after receiving the meclizine. The case was discussed with my supervising physician. It can also discuss the case with the patient's primary care provider. I reviewed discharge instructions the patient. They voiced understanding and had no further questions. Medical Decision Differential diagnosis: Dehydration, orthostatic hypotension, CVA, vertigo, anemia Acute myocardial infarction, cardiac arrhythmia, thyroid abnormality, valvular disease, pericarditis, electrolyte imbalance This patient is a 46-year-old female that presents emergency department with dizziness. It sounds like a lightheaded sensation as opposed to a spinning/ vertiginous sensation. On exam, she was neurologically intact. No murmur or cardiac arrhythmia were noted. An EKG shows normal sinus rhythm with no signs of ischemia or infarction. Her troponin and other cardiac enzymes are negative. She is not significantly anemic. Orthostatics were performed and stable. The patient's symptoms do not resolve with fluids. She was given 1 dose of meclizine, which did seem to help with her symptoms. It is possible that this is vertiginous in nature as it is responding to meclizine. The case was discussed with supervising physician and the patient's primary care provider. We believe she is stable to be discharged home. The patient is comfortable with this. She was given a prescription for meclizine. She will also have arrangements made for a Holter monitor and possible echo as an outpatient. She agreed to return to the emergency department immediately with any new, worsening or concerning symptoms This chart was completed in part utilizing [employer] Voice Recognition software. Attempts were made to minimize the grammatical errors, random word insertions, pronoun errors and incomplete sentences. Any formal questions or concerns about the content, text or information contained within the body of this dictation should be directly addressed to the provider for clarification. Medication Reconcilliation Current Medication List: was personally reviewed by me Blood Pressure Screening Patient's blood pressure: Normal blood pressure Impression Primary Impression: Dizziness Departure Information Dispostion Home / Self-Care Condition GOOD Prescriptions Meclizine Hcl (MECLIZINE HCL) 25 Mg Tab 1 TAB PO TID Y for Dizziness or Vertigo for 10 Days, #30 TAB Prov: Luanne Gudino PA-C 07/04/17 Referrals Kyaw Khan M.D. (PCP) Patient Instructions My [facility] Additional Instructions You were evaluated in the emergency department for dizziness. It is possible that this is due to vertigo. Please take meclizine 25 mg 1 tab every 8 hours as needed Please follow-up with your primary care physician as soon as possible. Please call today for a follow-up appointment. We will likely want to do further testing. Please do not hesitate to return to the emergency department with any new, worsening or concerning symptoms.
[2017-07-04 13:55] LABS: CHLORIDE 108 mmol/L (98-107); POTASSIUM 3.4 mmol/L (3.5-5.1); SODIUM 138 mmol/L (136-145)
--- NOTE | 2017-07-04 13:55 | DIAGNOSTIC IMAGING REPORT ---
CHEST ONE VIEW PORTABLE CLINICAL HISTORY: C08 - dizziness, near syncope COMPARISON STUDY: No previous studies for comparison. FINDINGS: The bones soft tissues and hemidiaphragms are normal. The cardiomediastinal silhouette is normal. The lungs are clear. The pulmonary vasculature is normal. IMPRESSION: Negative chest. The above report was generated using voice recognition software. It may contain grammatical, syntax or spelling errors. Electronically signed by: Harvinder Diane M.D. 07/04/2017 1:54 PM Dictated Date/Time: 07/04/2017 1:54 PM
[2017-07-04 14:00] LABS: ALT/SGPT 25 U/L (12-78); AST/SGOT 14 U/L (15-37); BLOOD UREA NITROGEN 12 mg/dl (7-18); BUN/CREATININE RATIO 19.5 (10-20); CARBON DIOXIDE 27 mmol/L (21-32); CREATININE 0.61 mg/dl (0.60-1.20); GLUCOSE 87 mg/dl (70-99)
[2017-07-04] MEDS ORDERED: SODIUM CHLORIDE 0.9% 1000ML 1,000 ML IV ONE (14:00)
[2017-07-04 14:11] LABS: ALB/GLOB RATIO 1.1 (0.9-2); ALKALINE PHOSPHATASE 94 U/L (45-117); CKMB/CK RATIO 1.2 (0-3.0)
[2017-07-04] MEDS ORDERED: MISCCAP80 PO (14:53)
[2017-07-04] MEDS ORDERED: MECLIZINE HCL 25 MG TAB PO STA (15:20)
--- NOTE | 2017-07-04 16:08 | DIAGNOSTIC IMAGING REPORT ---
CT OF THE HEAD WITHOUT CONTRAST CLINICAL HISTORY: Dizziness. COMPARISON STUDY: Head CT November 26, 2015. CT DOSE: 638.56 mGycm TECHNIQUE: Helical axial images of the head were obtained without IV contrast. Automated exposure control was utilized for the study. A dose lowering technique was utilized adhering to the principles of ALARA. FINDINGS: No acute intracranial hemorrhage, midline shift or mass effect is present. Ossification/calcification along anterior falx is noted. Ventricular system is normal. Basilar cisterns are patent. There are no extra-axial collections. Luciano-white differentiation is maintained. There are no findings to suggest acute dural sinus thrombosis or acute territorial infarct. There are no significant calvarial abnormalities. Visualized portions of the sinuses and mastoid air cells are clear. IMPRESSION: No acute intracranial findings. Electronically signed by: Amadou Hicks M.D. 07/04/2017 4:06 PM Dictated Date/Time: 07/04/2017 4:02 PM
[2017-07-04] MEDS ORDERED: MECL1TAB42 PO (16:28)
[2017-07-04 16:31] LABS: URINE APPEARANCE CLEAR (CLEAR); URINE BILIRUBIN NEG (NEG); URINE COLOR YELLOW; URINE NITRITE NEG (NEG); URINE SPECIFIC GRAVITY 1.013 (1.000-1.030); UROBILINOGEN NEG (NEG); ZZUR CULT IF INDIC CLEAN CATCH NO
[2017-07-04 16:34] LABS: MANUAL MICROSCOPIC REQUIRED? NO; REVIEW REQ? NO
[2017-07-04 16:46] VITALS: BP 134/79; PULSE 80; O2SAT 96
== END 2017-07-04 16:58 | disposition home or self-care (01) ==
LOC: C.EDB 12:44 → C.EDC 16:58
DX: R42 Dizziness and giddiness (principal); Z83.3 Family history of diabetes mellitus; Z82.49 Family history of ischemic heart disease and other diseases of the circulatory system

== ENCOUNTER 2024-08-30 07:09 | Inpatient (IN) ==
--- OUTSIDE RECORDS SUMMARY | 2024-08-30 07:13 | External Medical Summary | Summary of Care ---
Author Name Unknown Organization [facility] Address [address] [place] [address] Phone [phone] Care Team Providers Care Leading Firefighter Name Role Phone Kyaw Khan MD Primary Care Provider + Reason for Visit * Reason Onset Date Comments Sleep Apnea Device 07/13/2024 Encounter Details Date Type Department Care Team (Late st Contact Info) Description 07/13/2024 Telephone Sleep Lab, [facility] [address] [place] [address] Malena Whiting, DO [address] [place] [address] Sleep Apnea Device Allergies Active Allergy Reactions Criticality Noted Date Comments Fexofenadine 05/05/2002 constipation Lisinopril Cough 08/15/2022 Penicillins 03/12/2001 rash Sulfa Antibiotics 03/12/2001 rash documented as of this encounter (statuses as of 07/13/2024) Medications Cyanocobalamin (B-12-SL) 1000 MCG SL TabletIndication s:Vitamin B deficiency Place 1,000 mcg under the tongue daily. 90 Tab 3 8 Active Ventolin HFA 108 (90 Base) MCG/ACT Inhalation Aerosol SolutionIndicati ons:Bronchitis, complicated Inhale 2 Puffs by mouth every 4 hours as needed for Wheezing. May substitute proventil or ventolin 18 g 5 1 Active Pantoprazole Sodium 40 MG Oral Tablet Delayed Release (Protonix)Indica tions:Acute gastritis without hemorrhage, unspecified gastritis type Take 1 Tablet by mouth in the morning. 30 minutes before the first meal of the day. Do not crush, split or chew the tablet. 90 Tablet 3 4 Active hydrOXYzine HCl 25 MG Oral TabletIndication s:Anxiety Take 1 Tablet by mouth every 6 hours as needed for Anxiety. 40 Tablet 3 4 Active Sertraline HCl 50 MG Oral Tablet (Zoloft)Indicati ons:Anxiety Take 1 Tablet by mouth in the morning. 90 Tablet 3 4 Active Womens Multi Vitamin & Mineral Oral Tablet Take by mouth. Activ e Losartan Potassium 25 MG Oral Tablet (Cozaar)Indicati ons:HTN, goal below 140/90 Take 1 Tablet by mouth in the morning. 90 Tablet 2 4 Active documented as of this encounter (statuses as of 07/13/2024) Active Problems Problem Noted Date Diagnosed Date Obesity, Class I, BMI 30.0-34.9 (see actual BMI) 04/26/2024 Dyslipidemia 12/12/2022 Gastroesophageal reflux disease without esophagi tis 08/12/2019 Well adult exam 06/14/2016 Overview (08/15/2022): 2019 colon WNL pamella 10y 06/12 Holter-rare PVC/PAC IBS (irritable bowel syndrome) 05/25/2013 Intermittent asthma with reliever use up to twic e per week 11/09/2010 Allergic rhinitis due to pollen Vitamin B deficiency documented as of this encounter (statuses as of 07/13/2024) Resolved Problems Problem Noted Date Diagnosed Date Resolved Date History of 2019 novel roberts virus disease (COVID-19) 07/04/2021 04/26/2024 Overview (07/04/2021): 06/17 Post-concussion headache 03/27/201607/2017 Presence of intrauterine con traceptive device (IUD) 04/21/2015 08/15/2022 Hepatic steatosis 06/03/2013 04/26/2024 Iron deficiency anemia 02/26/201203/02 Palpitations 11/09/2010 07/07/2018 Paroxysmal VT 08/30/2010 08/04/2017 Asthma with severity to be determined 01/18/2010 11/09/2010 Overview (11/06/2015): Per Asthma Taxonomy ICD-10 update of inactive term Asthma, allergic 12/24/2007 01/18/2010 Primary localized osteoarthrosis, lower leg 12/24/2007 12/08/2012 ADVANCE DIRECTIVE INFORMATION 10/21/2005 07/07/2018 Overview (10/21/2005): Yes, Patient instructed to provide copy of advance directive for provider to review and to be scanned into Electronic Medical Record Dysmenorrhea 10/19/2004 08/15/2022 Rosacea 08/17/2002 04/26/2024 Family history of polycystic kidney 08/17/2002 10/21/2007 Other specified forms of osteochondropathy 04/26/2024 Hemorrhage of rectum and anus 12/24/2007 Extrinsic asthma with exacerbation 12/24/2007 Overview (11/07/2015): ICD-10 update of inactive term Cholelithiasis 01/25/2014 Gastritis 01/25/2014 documented as of this encounter (statuses as of 07/13/2024) Immunizations Name Administration Dates Next Due Covid-19 Ad26, Single Dose (Constanza/J&J) 12/19/2020,09/25/2020 HEP A - Hepatitis A (Adult > 18 yrs) 09/19/2022, 08/15/2022,01/10/2022 HEPATITIS B VACCINE, RECOMB, 20 MCG/ML, ADULT (HEPLISAV-B) 09/19/2022,08/15/2022 Hepatitis B, 20+ yrs 01/10/2022 PPD 01/01/2006 Pneumococcal Polysaccharide PPV23 (Pneumovax) 06/20/2020 Seasonal Influenza Vac., MDV , IM, 0.5 mL (Fluzone) 04/25/2014,05/25/2013,04/23/2012,05/15,05/03/2010,05/25/2009,04/29/2008 ,05/19/2007,05/09/2006 Seasonal Influenza Virus Vac cine, Unspecified Formulation 06/03/2023,05/23/2020,04/29/2019,04/30,05/16/2017,05/03/2010,05/25/2009 ,04/29/2008,05/19/2007,05/09/2006,11/0 07/2004 Seasonal Influenza, PF, 6 M & above, IM , (FluLaval or Fluzone) 05/12/2022,07/25/2021,05/23/2020,04/30,05/16/2017 Seasonal Influenza, Quadriva lent, No Preserve, IM 04/29/2019,04/30/2018 Seasonal Influenza, Recombin ant, Trivalent, PF (Flublock) 05/07/2016 Seasonal Influenza, Trivalen t, (IIV3), PF, (Fluzone) 04/26/2024 TD - Tetanus/Diptheria (ADULT) 03/28/2002 TDAP (age 10 and older)(Boostrix) 08/15/2022 TDAP, Age 7 and older, IM (Adacel) 03/15/2011 documented as of this encounter Social History Tobacco Use Types Packs/Day Years Used Date Smoking Tobacco: Never Smokeless Tobacco: Never Alcohol Use Standard Drinks/Week Comments No 0 (1 standard drink = 0.6 oz pur e alcohol) PHQ-2 Answer Date Recorded PHQ Adult Total Score 0 08/20/2023 Hunger Vital Sign Answer Date Recorded Within the past 12 months, y ou worried that your food would run out before you got the money to buy more. Never true 08/15/19 23 Within the past 12 months, t he food you bought just didn't last and you didn't have money to get more. 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 Not on file Not on fi le Not on file documented as of this encounter Miscellaneous Notes * Telephone Encounter - Monika Willams RPSGT - 07/13/2024 8:42 AM EST This patient's WatchPat study from 06/30/2024 is ready to be interpreted. documented in this encounter Plan of Treatment Upcoming Encounters Date Type Department Care Team (Late st Contact Info) Description 08/11/2024 9:00 AM EST Imaging Radiology [address] [place] [address] 08/25/2024 12:00 PM EST Office Visit Family [facility] [address] [place] [address] Kyaw Khan MD [address] [place] [address] Scheduled Procedures Name Priority Associated Diagnoses Date/Ti me COLONOSCOPY FLEXIBLE PROXIMA L DIAGNOSTIC Recall Special screening for malignant neoplasms, colon Health Maintenance Due Date Last Done Comments HPV/Co-Test 1999 Cologuard 2014 Fecal Occult Blood Test 2014 Sigmoidoscopy 2014 Zoster Vaccines (1 of 2) 2019 Pneumococcal Vaccine: Pediatrics (0 to 5 Years) and At-Risk Patients (6 to 64 Years) (2 of 2 - PCV) 06/20/2021 06/20/2020 *SPIROMETRY ONCE FOR ASTHMA-ADULT 06/20/2022 Cervical Cancer Screening 04/12/2023 Pap Smear 04/12/2023 04/12/2020, 08/29, 04/21/2015, Additional history exists Mammogram 08/04/2024 08/04/2023, 11/2022, 07/25/2021, Additional history exists Depression Screening 08/20/2024 08/20/2023 Diabetes Screening 11/27/2026 11/28/2023, 0 12/06/2022, 02/05/2022, Additional history exists Lipid Panel 11/27/2028 11/28/2023, 11/25, 03/07/2017, Additional history exists Colonoscopy 08/13/2029 08/13/2019, 07/28, 07/24/2011 Colorectal Cancer Screening 08/13/2029 DTap/Tdap Vaccines (3 - Td or Tdap) 08/15/2032 08/15/2022, 03/15/2011, 03/28/2002 COVID-19 Vaccine Discontinued 12/19/2020, 09/25/2020 Hepatitis B Vaccine Completed 09/19/2022, 08/15/2022, 01/10/2022 Influenza Vaccine (FLU shot) Completed 04/26/2024, 06/03/2023, 05/12/2022, Additional history exists HPV (Gardasil) Vaccine Aged Out No lo nger eligible based on patient's age to complete this topic MENINGOCOCCAL (MENACTRA/MENVEO) Aged Out No longer eligible based on patient's age to complete this topic documented as of this encounter Medical Devices Not on filedocumented as of this encounter Advance Directives * Full Code (Latest Code Status on File) Date Activated Date Inactivated Comments 10/21/2022 11:11 AM 10/21/2022 5:13 PM This order reflects the patients wishes and were consensually agreed upon. Question Answer Comments Discussion of Advance Direct ingrid occurred with: Not Discussed due to patient's condition * Full Code Date Activated Date Inactivated Comments 10/21/2022 9:13 AM 10/21/2022 11:11 AM This order reflects the patients wishes and were consensually agreed upon. Question Answer Comments Discussion of Advance Direct ingrid occurred with: Not Discussed due to patient's condition * Full Code Date Activated Date Inactivated Comments 10/16/2020 9:58 AM 10/16/2020 3:33 PM This order r eflects the patients wishes and were consensually agreed upon. Care Teams Leading Firefighter Relationship Specialty Start Date End Date Kyaw Khan MD [address] [place] [id number] PCP - General Family Medicine 03/27/16 documented as of this encounter
--- OUTSIDE RECORDS SUMMARY | 2024-08-30 07:13 | External Medical Summary | Summary of Care ---
Author Name Unknown Organization [facility] Address [address] [place] [address] Phone [phone] Care Team Providers Care Carpet Or Rug Layer Helper Name Role Phone Kyaw Khan MD Primary Care Provider + Reason for Visit * Reason Comments Acute Pt c/o cold symptoms started last Friday, getting worse, fatigue, had a cough, and congestion went away but returned, lightheaded; work excuse. Encounter Details Date Type Department Care Team (Late st Contact Info) Description 08/11/2024 11:20 AM EST Office Visit Family Medicine [address] [phone] Dee Cope, PA-C [address] [place] [address] [place] [address] Acute maxillary sinusitis, recurrence not specified* Allergies Active Allergy Reactions Criticality Noted Date Comments Fexofenadine 05/05/2002 constipation Lisinopril Cough 08/15/2022 Penicillins 03/12/2001 rash Sulfa Antibiotics 03/12/2001 rash documented as of this encounter (statuses as of 08/11/2024) Medications Cyanocobalamin (B-12-SL) 1000 MCG SL TabletIndication [...] the morning. 90 Tablet 2 4 Active Doxycycline Hyclate 100 MG Oral CapsuleIndicatio ns:Acute maxillary sinusitis, recurrence not specified Take 1 Capsule by mouth in the morning and 1 Capsule before bedtime. Do all this for 10 days. Until gone.. 20 Capsule 5 08/21/19 25 Active documented as of this encounter (statuses as of 08/11/2024) Active Problems Problem Noted Date Diagnosed Date Obesity, Class I, BMI 30.0-34.9 (see actual BMI) 04/26/2024 Dyslipidemia 12/12/2022 Gastroesophageal reflux disease without esophagi tis 08/12/2019 Well adult exam 06/14/2016 Overview (08/15/2022): 2019 colon WNL paemlla 10y 06/12 Holter-rare PVC/PAC IBS (irritable bowel syndrome) 05/25/2013 Intermittent asthma with reliever use up to twic e per week 11/09/2010 Allergic rhinitis due to pollen Vitamin B deficiency documented as of this encounter (statuses as of 08/11/2024) Resolved Problems Problem Noted Date Diagnosed Date [...] as of this encounter (statuses as of 08/11/2024) Immunizations Name Administration Dates Next Due Covid-19 Ad26, Single Dose (Constanza/J&J) 12/19/2020,09/25/2020 HEP A - Hepatitis A (Adult > 18 yrs) 09/19/2022, 08/15/2022,01/10/2022 HEPATITIS B VACCINE, RECOMB, 20 MCG/ML, ADULT (HEPLISAV-B) 09/19/2022,08/15/2022 Hepatitis B, 20+ yrs 01/10/2022 PPD 01/01/2006 Pneumococcal Polysaccharide PPV23 (Pneumovax) 06/20/2020 Seasonal Influenza Vac., MDV , IM, 0.5 mL (Fluzone) 04/25/2014,05/25/2013,04/23/2012,05/15,05/03/2010,05/25/2009,04/29/2008 ,05/19/2007,05/09/2006 Seasonal Influenza Virus Vac cine, Unspecified Formulation 06/03/2023,05/23/2020,04/29/2019,04/30,05/16/2017,05/03/2010,05/25/2009 ,04/29/2008,05/19/2007,05/09/2006,11/07/2004 Seasonal Influenza, PF, 6 M & above, [...] 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 Not on fi le Not on file documented as of this encounter Last Filed Vital Signs Vital Sign Reading Time Taken Comments Blood Pressure 144/86 08/11/2024 11:23 AM EST Pulse 74 08/11/2024 11:23 AM EST Temperature - - Respiratory Rate - - Oxygen Saturation 98% 08/11/2024 11:23 AM EST Inhaled Oxygen Concentration - - Weight 98 kg (216 lb) 08/11/2024 11:23 AM EST Height - - Body Mass Index 33.83 06/28/2024 10:02 AM EST documented in this encounter Progress Notes * Dee Cope PA-C - 08/11/2024 11:27 AM EST Chief Complaint Patient presents with Acute Pt c/o cold symptoms started last Friday, getting worse, fatigue, had a cough, and congestion wentaway but returned, lightheaded; work excuse. Pt here today with cough, chest congestion, nasal/head congestion, ear pain, headache, sore throat,post nasal drip, nasal drainage for the past week. Pt denies fever, chills, nausea, vomiting, diarrhea, chest pain, SOB. Pt needs a note for work. Review of patient's allergies indicates: Allergen Reactions Fexofenadine constipation Lisinopril Cough Penicillins rash Sulfa Antibiotics rash Current Outpatient Medications Medication Sig Dispense Refill Cyanocobalamin (B-12-SL) [address] 1,000 mcg under the tongue daily. 90 Tab 3 Ventolin HFA 108 (90 Base) MCG/ACT Inhalation Aerosol Solution Inhale 2 Puffs by mouth every 4 hours as needed for Wheezing. May substitute proventil or ventolin 18 g 5 Pantoprazole Sodium 40 MG Oral Tablet Delayed Release (Protonix) Take 1 Tablet by mouth in the morning. 30 minutes before the first meal of the day. Do not crush, split or chew the tablet. 90 Tablet 3 hydrOXYzine HCl 25 MG Oral Tablet Take 1 Tablet by mouth every 6 hours as needed for Anxiety. 40 Tablet 3 Sertraline HCl 50 MG Oral Tablet (Zoloft) Take 1 Tablet by mouth in the morning. 90 Tablet 3 Womens Multi Vitamin & Mineral Oral Tablet Take by mouth. Losartan Potassium 25 MG Oral Tablet (Cozaar) Take 1 Tablet by mouth in the morning. 90 Tablet 2 No current facility-administered medications for this visit. Past Medical History: Diagnosis Date Allergic rhinitis due to other allergen Asthma exacerbation, allergic Cholelithiasis Dyslipidemia 12/12/2022 Dyslipidemia, goal LDL below 130 12/12/2022 Dysmenorrhea 10/19/2004 Family history of polycystic kidney Mother Gastritis Hemorrhage of rectum and anus 08/2000 Hepatic steatosis 06/03/2013 History of 2019 novel coronavirus disease (COVID-19) 07/04/202106/17 IBS (irritable bowel syndrome) 05/25/2013 Intermittent asthma with reliever use up to twice per week 11/09/2010 Iron deficiency anemia 02/26/2012 LOC PRIM [id number] 12/24/2007 Obesity, Class I, BMI 30.0-34.9 (see actual BMI) 04/26/2024 Other constipation 12/08/2012 Other specified forms of osteochondropathy 1995 osteochondroma removed r Tibial plateau Palpitations 11/09/2010 Paroxysmal VT (HCC) 08/30/2010 Rosacea Vitamin B deficiency 03/2008 Vitamin B12 deficiency Social History Socioeconomic History Marital status: Spouse name: Not on file Number of children: 2 Years of education: Not on file Highest education level: Not on file Occupational History 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 Tobacco Use Smoking status: Never Smokeless tobacco: Never Vaping Use Vaping status: Never Used Substance and Sexual Activity Alcohol use: No Drug use: No Sexual activity: Yes Partners: Male Comment: . 2 kids. 3grands local. Other Topics Concern Service No Blood Transfusions No Caffeine Concern No Occupational Exposure No Hobby Hazards No Sleep Concern No Stress Concern No Weight Concern No Special Diet No Back Care No Exercise Yes Bike Helmet Not Asked Seat Belt Yes Self-Exams Yes Social History Narrative 3 grandkids local. Social Needs Financial Resource Strain: Not on file Food Insecurity: No Food Insecurity (08/15/2022) Hunger Vital Sign Worried About Running Out of Food in the Last Year: Never true Ran Out of Food in the Last Year: Never true Transportation Needs: Not on file Social Connections: Not on file Housing Stability: Not on file O:Blood pressure 144/86, pulse 74, weight 216 lb (98 kg), SpO2 98%. GENERAL: alert and no distress NECK: supple, no adenopathy EYES: PERRLA, conjunctiva are pink and non-injected, sclera clear EARS: External ears normal, Canals clear, TM's Normal NOSE: no mucosal erythema, no mucosal edema, no purulent discharge OROPHARYNX: no exudate, no erythema, lips, buccal mucosa, and tongue normal, and mucous membranes are moist HEART: regular rate & rhythm, no murmur, and no gallops LUNGS: chest symmetric with normal AP diameter, no chest deformities noted, no chest wall tenderness, lungs clear to auscultation A:Acute maxillary sinusitis, recurrence not specified (Primary) - RETURN TO WORK OR SCHOOL - Doxycycline Hyclate 100 MG Oral Capsule; Take 1 Capsule by mouth in the morning and 1 Capsule before bedtime. Do all this for 10 days. Until gone.. Start above med. Rest, fluids. Any questions/problems, please call. If anything changes, worsens, develops new sx, please call [facility]. Follow Up: Return if symptoms worsen or fail to improve. Dee Cope PA-C documented in this encounter Plan of Treatment Upcoming Encounters Date Type Department Care Team (Late st Contact Info) Description 08/25/2024 12:00 PM EST Office Visit Family Practice [facility] [address] [place] [phone] Kyaw Khan MD [address] [place] [place] [id number] Scheduled Procedures Name Priority Associated Diagnoses Date/Ti me COLONOSCOPY FLEXIBLE PROXIMA L DIAGNOSTIC Recall Special screening for malignant neoplasms, colon Health Maintenance Due Date Last Done Comments HPV/Co-Test 1999 Cologuard 2014 Fecal Occult Blood Test 2014 Sigmoidoscopy 2014 Zoster Vaccines (1 of 2) 2019 Pneumococcal Vaccine: 50+ Years (2 of 2 - PCV) 06/20/2021 06/20/2020 [...] Not on filedocumented as of this encounter Visit Diagnoses Diagnosis Acute maxillary sinusitis, recurrence not specified- Primary documented in this encounter Advance Directives * Full Code [...] and were consensually agreed upon. Care Teams Carpet Or Rug Layer Helper Relationship Specialty Start Date End Date Kyaw Khan MD [address] [place] [id number] PCP - General Family Medicine 03/27/16 documented as of this encounter
--- OUTSIDE RECORDS SUMMARY | 2024-08-30 07:13 | External Medical Summary | Summary of Care ---
Author Name Unknown Organization [facility] Address [address] [place] [address] Phone [phone] Care Team Providers Care Home Visitor Name Role Phone Kyaw Khan MD Primary Care Provider + Reason for Visit * Reason Comments Review Sleep Study WatchPAT Encounter Details Date Type Department Care Team (Latest Contact Info) Description 06/28/2024 12:10 PM EST PulmDiagnostic Sleep Lab [facility] [address] [place] [address] [facility] Study [facility] [address] [place] [address] Obstructive sleep apnea* Allergies Active Allergy Reactions Criticality Noted Date Comments Fexofenadine 05/05/2002 constipation Lisinopril Cough 08/15/2022 Penicillins 03/12/2001 rash Sulfa Antibiotics 03/12/2001 rash documented as of this encounter (statuses as of 07/22/2024) Medications Cyanocobalamin (B-12-SL) 1000 MCG SL TabletIndicatio ns:Vitamin B deficiency Place 1,000 mcg under the tongue daily. 90 Tab 3 8 Active Ventolin HFA 108 (90 Base) MCG/ACT Inhalation Aerosol SolutionIndicat ions:Bronchitis , complicated Inhale 2 Puffs by mouth every 4 hours as needed for Wheezing. May substitute proventil or ventolin 18 g 5 1 Active Pantoprazole Sodium 40 MG Oral Tablet Delayed Release (Protonix)Indic ations:Acute gastritis without hemorrhage, unspecified gastritis type Take 1 Tablet by mouth in the morning. 30 minutes before the first meal of the day. Do not crush, split or chew the tablet. 90 Tablet 3 4 Active hydrOXYzine HCl 25 MG Oral TabletIndicatio ns:Anxiety Take 1 Tablet by mouth every 6 hours as needed for Anxiety. 40 Tablet 3 4 Active Sertraline HCl 50 MG Oral Tablet (Zoloft)Indicat ions:Anxiety Take 1 Tablet by mouth in the morning. 90 Tablet 3 4 Active Womens Multi Vitamin & Mineral Oral Tablet Take by mouth. Activ e Losartan Potassium 25 MG Oral Tablet (Cozaar)Indicat ions:HTN, goal below 140/90 Take 1 Tablet by mouth in the morning. 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 documented in this encounter Plan of Treatment Upcoming Encounters Date Type Department Care Team (Late st Contact Info) Description 08/11/2024 9:00 AM EST Imaging Radiology [address] [place] [id number] 08/25/2024 12:00 PM EST Office Visit Family Practice [facility] [address] [place] [address] Kyaw Khan MD [address] [place] [address] Scheduled Orders Name Type Priority Associated Diagnoses Orde r Schedule TIMED SLEEP STUDY, UNATTEND, HR/O2 SAT/RESP Procedures Routine Sleep apnea, unspecified type Snoring Insomnia, unspecified type Fatigue, unspecified type Hypersomnolence HTN, goal below 130/80 Ordered: 06/28/2024 Scheduled Procedures Name Priority Associated Diagnoses Date/Ti [...] as of this encounter Visit Diagnoses Diagnosis Obstructive sleep apnea- Primary Obstructive sleep apnea (adult) (pediatric) documented in this encounter Advance Directives * [...] and were consensually agreed upon. Care Teams Home Visitor Relationship Specialty Start Date End Date Damaske, Kyaw Barrington, MD [address] [id number] PCP - General Family Medicine 03/27/16 documented as of this encounter
--- OUTSIDE RECORDS SUMMARY | 2024-08-30 07:14 | External Medical Summary | Summary of Care ---
Author Name Unknown Organization [facility] Address [address] [place] [address] Phone [phone] Care Team Providers Care [employer] Name Role Phone Kyaw Khan MD Primary Care Provider + Reason for Referral * Evaluate & Treat - Unlimited Visits (Within 10 days (routine)) - Authorized Specialty Diagnoses / Procedures Referred By Beka webster Referred To Contact Sleep Medicine / Sleep Disorders Diagnoses Snoring Sleep apnea in adult Daytime somnolence Keith Conde MD [address] [place] [address] Phone: tel: fax: Referral ID Status Reason Start Date Expiration Date Visits Requested Visits Authorized [id number] Authorized Specialty Services Required 4 2 2 Question Answer Referral Priority Within 10 days (routine) Where should this appointment be scheduled? [facility] SLEEP MED ADULT REFERRAL Sleep Apnea Testing and Management Does the patient snore and/or gasp at night or has been told they stop breathing at night? Yes, document patient's symptoms in progress note Reason for Visit * Reason Comments Headache Pt here for increase in headaches. About 2-3 a week lasting 6-24 hours. Pt has been taking advil or tylenol for the headaches, pt reports that it will lessen the headaches but dose not get rid of them. Fatigue Pt has been more fat igued over the last month. Pt reports no change to sleep routine.Pt states that sometimes she wakes up still fatigued other days does not hit her till 1-2pm. Encounter Details Date Type Department Care Team (Late st Contact Info) Description 06/17/2024 1:00 PM EST Office Visit Family [facility] [address] [place] [id number] Keith Conde MD [address] [place] [address] Morning headache*; Snoring; Sleep apnea in adult; Daytime somnolence; Episodic tension-type headache, not intractable Allergies Active Allergy Reactions Criticality Noted Date Comments Fexofenadine 05/05/2002 constipation Lisinopril Cough 08/15/2022 Penicillins 03/12/2001 rash Sulfa Antibiotics 03/12/2001 rash documented as of this encounter (statuses as of 06/17/2024) Medications Cyanocobalamin (B-12-SL) 1000 MCG SL TabletIndicatio ns:Vitamin B deficiency Place 1,000 mcg under the tongue daily. 90 Tab 3 8 Active Ventolin HFA 108 (90 Base) MCG/ACT Inhalation Aerosol SolutionIndicat ions:Bronchitis , complicated Inhale 2 Puffs by mouth every 4 hours as needed for Wheezing. May substitute proventil or ventolin 18 g 5 1 Active Losartan Potassium 25 MG Oral Tablet (Cozaar)Indicat ions:HTN, goal below 140/90 Take 1 Tablet by mouth in the morning. 90 Tablet 3 3 Active Pantoprazole Sodium 40 MG Oral Tablet [...] Oral Tablet Take by mouth. Activ e Neomycin-Polymy christopher-HC [id number] Otic Solution Administer 4 Drops into ears in the morning and 4 Drops at noon and 4 Drops before bedtime. To affected ear, for 10 days.. 10 mL 1 4 06/17/20 24 Discontin ued(Medic ation List Clean Up) documented as of this encounter (statuses as of 06/17/2024) Active Problems Problem Noted Date Diagnosed Date [...] as of this encounter (statuses as of 06/17/2024) Resolved Problems Problem Noted Date Diagnosed Date [...] as of this encounter (statuses as of 06/17/2024) Immunizations Name Administration Dates Next Due Covid-19 Ad26, Single Dose (Constanza/J&J) 12/19/2020,09/25/2020 HEP A - Hepatitis A (Adult > 18 yrs) 09/19/2022, 08/15/2022,01/10/2022 HEPATITIS B VACCINE, RECOMB, 20 MCG/ML, ADULT (HEPLISAV-B) 09/19/2022,08/15/2022 Hepatitis B, 20+ yrs 01/10/2022 PPD 01/01/2006 Pneumococcal Polysaccharide PPV23 (Pneumovax) 06/20/2020 Seasonal Influenza Vac., MDV , IM, 0.5 mL (Fluzone) 04/25/2014,05/25/2013,04/23/2012,05/15,05/03/2010,05/25/2009,04/29/2008 ,05/19/2007,05/09/2006 Seasonal Influenza Virus Vac cine, Unspecified Formulation 06/03/2023,05/23/2020,04/29/2019,04/30,05/16/2017,05/03/2010,05/25/2009 ,04/29/2008,05/19/2007,05/09/2006,1107/2004 Seasonal Influenza, PF, 6 M & above, [...] Date Smoking Tobacco: Never Smokeless Tobacco: Never Tobacco Cessation:Counseling Given: Not Answered Alcohol Use Standard Drinks/Week Comments No 0 [...] Industry 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 Not on file Not on fi le Not on file documented as of this encounter Last Filed Vital Signs Vital Sign Reading Time Taken Comments Blood Pressure 138/76 06/17/2024 12:56 PM EST Pulse 86 06/17/2024 12:56 PM EST Temperature 36.5 C (97.7 F) 06/17/2024 1 2:56 PM EST Respiratory Rate 16 06/17/2024 12:5 6 PM EST Oxygen Saturation 97% 06/17/2024 12: 56 PM EST Inhaled Oxygen Concentration - - Weight 99.7 kg (219 lb 12.8 oz) 024 12:56 PM EST Height 170.2 cm (5' 7") 06/17/2024 12:5 6 PM EST Body Mass Index 34.43 06/17/2024 12:56 PM EST documented in this encounter Progress Notes * Keith Conde MD - 06/17/2024 1:23 PM EST Images from the original note were not included. History of Present Illness Muriel Patterson is a 53 year old female that presents for Headache (Pt here for increase in headaches. About 2-3 a week lasting 6-24 hours. Pt has been taking advil or tylenol for the headaches, pt reports that it will lessen the headaches but dose not get rid of them.) and Fatigue (Pt has been more fatigued over the last month. Pt reports no change to sleep routine.Pt states that sometimes she wakes up still fatigued other days does not hit her till 1-2pm.) Physical Exam BP 138/76 (BP Site: Left Arm, BP Position: Sitting, BP Cuff Size: Regular) | Pulse 86 | Temp 97.7 F (36.5 C) (Tympanic) | Resp 16 | Ht 5' 7" (1.702 m) | Wt 219 lb 12.8 oz (99.7 kg) | LMP (LMP Unknown) | SpO2 97% | BMI 34.43 kg/m | BSA 2.17 m AAOx3 Normal affect NCAT/ PERRL Spasm/tightness of b/l trapezius/cervical paraspinals Neck supple Throat clear RRR Lungs CTABL Abd soft +BS Ext warm and well perfused No gross neuro deficits Normal gait I have reviewed most recent labs None Assessment and Plan Morning headache Snoring Sleep apnea in adult Daytime somnolence Episodic tension-type headache, not intractable Upon review she is having two different kinds of headaches. The former occurs in the morning and ispresent when she wakes up. It DOES NOT wake her up. She has noticed some hypoxia and HRV on her wearable as well. She does snore and loudly - she and her sleep in separate rooms (he also snores). There is daytime somnolence as well. I am concerned about JOCE and so is she after discussion, th ere has been recent weight gain as well. Referred to sleep medicine and would prefer to get a home PSG. 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 She can use massage gun/moist heat/prn NSAIDs and massage for this. Wrap-Up Time: I spent a total of 30-39 minutes (exact time 31 mins) on the date of service in preparation, delivery, and documentation of the care provided to Muriel Patterson excluding any time spent in the performance of separately billed services. documented in this encounter Plan of Treatment Upcoming Encounters Date Type Department Care Team (Late st Contact Info) Description 08/11/2024 9:00 AM EST Imaging Radiology [address] [place] [address] 08/18/2024 8:00 AM EST Office Visit Sleep Disorders [facility]tr [facility] [address] [place] [phone] Malena Whiting DO [address] [place] [address] 08/25/2024 12:00 PM EST Office Visit Family Practice [facility] [address] [place] [address] Kyaw Khan MD [address] [place] [address] Scheduled Procedures Name Priority Associated Diagnoses Date/Ti me COLONOSCOPY FLEXIBLE PROXIMA L DIAGNOSTIC Recall Special screening for malignant neoplasms, colon Scheduled Referrals Name Type Priority Associated Diagnoses Orde r Schedule SLEEP MEDICINE REFERRAL OP Referral Within 10 days (routine) Snoring Sleep apnea in adult Daytime somnolence Ordered: 06/17/2024 Health Maintenance Due Date Last Done Comments HPV/Co-Test 1999 Cologuard 2014 Fecal Occult Blood Test 2014 Sigmoidoscopy 2014 Zoster Vaccines (1 of 2) 2019 *SPIROMETRY ONCE FOR ASTHMA-ADULT 06/20/2022 Pap Smear 04/12/2023 04/12/2020, 08/29, 04/21/2015, Additional history exists Cervical Cancer Screening 06/18/2024 Po stponed from 04/12/2023 (Other) Pneumococcal Vaccine: Pediatrics (0 to 5 Years) and At-Risk Patients (6 to 64 Years) (2 of 2 - PCV) 06/18/2024 06/20/2020 Postponed from 06/20/2021 (Other) Mammogram 08/04/2024 08/04/2023, 11/2022, 07/25/2021, Additional history [...] as of this encounter Visit Diagnoses Diagnosis Morning headache- Primary Headache Snoring Other dyspnea and respiratory abnormality Sleep apnea in adult Daytime somnolence Hypersomnia, unspecified Episodic tension-type headache, not intractable Episodic tension type headache documented in this encounter Advance Directives * [...] and were consensually agreed upon. Care Teams [employer] Relationship Specialty Start Date End Date Kyaw Khan MD [address] [facility] [place] [address] PCP - General Family Medicine 03/27/16 documented as of this encounter
--- OUTSIDE RECORDS SUMMARY | 2024-08-30 07:14 | External Medical Summary | Summary of Care ---
Author Name Unknown Organization [facility] Address [address] [place] [address] Phone [phone] Care Team Providers Care Humanities Coordinator Name Role Phone Luca Weston MD Primary Care Provider + Reason for Visit * Reason Onset Date Comments Medication Refill 07/09/2024 Encounter Details Date Type Department Care Team (Late st Contact Info) Description 07/09/2024 Refill Family Practice [facility] [address] [facility] [place] [address] [facility] [address] [facility] [address] HTN, goal below 140/90 Allergies Active Allergy Reactions Criticality Noted Date Comments Fexofenadine 05/05/2002 constipation Lisinopril Cough 08/15/2022 Penicillins 03/12/2001 rash Sulfa Antibiotics 03/12/2001 rash documented as of this encounter (statuses as of 07/11/2024) Medications Cyanocobalamin (B-12-SL) 1000 MCG SL TabletIndicatio [...] the morning. 90 Tablet 2 4 Active Losartan Potassium 25 MG Oral Tablet (Cozaar)Indicat ions:HTN, goal below 140/90 Take 1 Tablet by mouth in the morning. 90 Tablet 3 3 07/09/20 24 Discontin ued(Refil l) documented as of this encounter (statuses as of 07/11/2024) Active Problems Problem Noted Date Diagnosed Date [...] as of this encounter (statuses as of 07/11/2024) Resolved Problems Problem Noted Date Diagnosed Date [...] as of this encounter (statuses as of 07/11/2024) Immunizations Name Administration Dates Next Due Covid-19 Ad26, Single Dose (Constanza/J&J) 12/19/2020,09/25/2020 HEP A - Hepatitis A (Adult > 18 yrs) 09/19/2022, 08/15/2022,01/10/2022 HEPATITIS B VACCINE, RECOMB, 20 MCG/ML, ADULT (HEPLISAV-B) 09/19/2022,08/15/2022 Hepatitis B, 20+ yrs 01/10/2022 PPD 01/01/2006 Pneumococcal Polysaccharide PPV23 (Pneumovax) 06/20/2020 Seasonal Influenza Vac., MDV , IM, 0.5 mL (Fluzone) 04/25/2014,05/25/2013,04/23/2012,05/15,05/03/2010,05/25/2009,04/29/2008 ,05/19/2007,05/09/2006 Seasonal Influenza Virus Vac cine, Unspecified Formulation 06/03/2023,05/23/2020,04/29/2019,04/30,05/16/2017,05/03/2010,05/25/2009 ,04/29/2008,05/19/2007,05/09/2006,07/2004 Seasonal Influenza, PF, 6 M & above, [...] 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 Not on file Not on fi le Not on file documented as of this encounter Miscellaneous Notes * Telephone Encounter - Myranda Ruvalcaba [facility] - 07/11/2024 9:28 PM ESTSigned Prescriptions: Disp Refills Losartan Potassium 25 MG Oral Tablet (Coza*90 Tab*2 Sig: Take 1Tablet by mouth in the morning.Authorizing Provider: LUCA WESTONOrderstuart User: MYRANDA RUVLACABA documented in this encounter Plan of Treatment Upcoming Encounters Date Type Department Care Team (Late st Contact Info) Description 08/11/2024 9:00 AM EST Imaging Radiology [address] [place] [address] 08/25/2024 12:00 PM EST Office Visit Family Practice [facility] [address] [facility] [place] [address] Luca Weston MD [address] [facility] [place] [address] Scheduled Procedures Name Priority Associated Diagnoses Date/Ti [...] 04/21/2015, Additional history exists Mammogram 08/04/2024 08/04/2023, 01/0 11/2022, 07/25/2021, Additional history exists Depression Screening [...] as of this encounter Visit Diagnoses Diagnosis HTN, goal below 140/90 Unspecified essential hypertension documented in this encounter Advance Directives * [...] and were consensually agreed upon. Care Teams Humanities Coordinator Relationship Specialty Start Date End Date Luca Weston MD [address] [place] [address] PCP - General Family Medicine 03/27/16 documented as of this encounter
--- OUTSIDE RECORDS SUMMARY | 2024-08-30 07:14 | External Medical Summary | Summary of Care ---
Author Name Unknown Organization [facility] Address [address] [place] [address] Phone [phone] Care Team Providers Care Agriculture Science Teacher Name Role Phone Kyaw Khan MD Primary Care Provider + Reason for Visit * Reason Comments NEW PATIENT Snoring Fatigue Headache * Evaluate & Treat - Unlimited Visits (Within 10 days (routine)) - Authorized Specialty Diagnoses / Procedures Referred By Beka webster Referred To Contact Sleep Medicine / Sleep Disorders Diagnoses Snoring Sleep apnea in adult Daytime somnolence Keith Serna MD [address] [place] [address] Phone: tel: fax: Referral ID Status Reason Start Date Expiration Date Visits Requested Visits Authorized [id number] Authorized Specialty Services Required 4 2 2 Encounter Details Date Type Department Care Team (Late st Contact Info) Description 06/28/2024 10:20 AM EST Office Visit Sleep Disorders Ctr [facility] [address] [place] [id number] Malena Whiting DO [address] [place] [address] Sleep apnea, unspecified type*; Snoring; Insomnia, unspecified type; Fatigue, unspecified type; Hypersomnolence; HTN, goal below 130/80 Allergies Active Allergy Reactions Criticality Noted Date Comments Fexofenadine 05/05/2002 constipation Lisinopril Cough 08/15/2022 Penicillins 03/12/2001 rash Sulfa Antibiotics 03/12/2001 rash documented as of this encounter (statuses as of 06/28/2024) Medications Cyanocobalamin (B-12-SL) 1000 MCG SL TabletIndication s:Vitamin B deficiency Place 1,000 mcg under the tongue daily. 90 Tab 3 8 Active Ventolin HFA 108 (90 Base) MCG/ACT Inhalation Aerosol SolutionIndicati ons:Bronchitis, complicated Inhale 2 Puffs by mouth every 4 hours as needed for Wheezing. May substitute proventil or ventolin 18 g 5 1 Active Losartan Potassium 25 MG Oral Tablet (Cozaar)Indicati [...] Oral Tablet Take by mouth. Activ e documented as of this encounter (statuses as of 06/28/2024) Active Problems Problem Noted Date Diagnosed Date Obesity, Class I, BMI 30.0-34.9 (see actual BMI) 04/26/2024 Dyslipidemia 12/12/2022 Gastroesophageal reflux disease without esophagi tis 08/12/2019 Well adult exam 06/14/2016 Overview (08/15/2022): 2020 colon WNL pamella 10y 06/12 Holter-rare PVC/PAC IBS (irritable bowel syndrome) 05/25/2013 Intermittent asthma with reliever use up to twic e per week 11/09/2010 Allergic rhinitis due to pollen Vitamin B deficiency documented as of this encounter (statuses as of 06/28/2024) Resolved Problems Problem Noted Date Diagnosed Date [...] as of this encounter (statuses as of 06/28/2024) Immunizations Name Administration Dates Next Due Covid-19 [...] Sign Reading Time Taken Comments Blood Pressure 124/80 06/28/2024 10:02 AM EST Pulse 90 06/28/2024 10:02 AM EST Temperature 35.9 C (96.7 F) 06/28/2024 10:[address] Respiratory Rate 16 06/28/2024 10:02 AM EST Oxygen Saturation 98% 06/28/2024 10:02 AM EST Inhaled Oxygen Concentration - - Weight 99.3 kg (219 lb) 06/28/2024 10:02 AM EST Height 170.2 cm (5' 7") 06/28/2024 10:02 AM EST Body Mass Index 34.3 06/28/2024 10:02 AM EST documented in this encounter Patient Instructions * Patient Instructions* Malena Whiting, - 06/28/2024 10:45 AM EST SLEEP APNEA We are concerned that you may have sleep apnea. Sleep apnea is when someone has difficulties with breathing only during sleep. This typically happens without the patient being aware they are having breathing issues. Obstructive sleep apnea is very common. It can be seen in kids and adults. It can cause symptoms of excessive daytime sleepiness, fatigue, morning headaches, and poor memory and cognition. It can also lead to difficulties at work or school and motor vehicle accidents. If left untreated, it puts people at risk for heart attacks, strokes, and diabetes. We diagnose sleep apnea with either an in-lab sleep study or a home sleep apnea test. More information can be obtained at: [email or web address] documented in this encounter Progress Notes * Malena Whiting DO - 06/28/2024 10:14 AM EST Sleep Medicine Evaluation [address] [place] [address] Consultation was requested by: Keith Serna MD for: loud snoring, daytime sleepiness, morning headache, nocturnal hypoxia suggested by wearable and a copy of this report is being sent to the provider electronically. Relevant available records reviewed. HPI: Muriel Patterson is a(n) 53 year old female presenting for evaluation of suspected sleep apnea. Snoring, increased per her . Used to be mostly when congested, but more frequent now. Daytime tiredness/sleepiness for about 2 months now. + morning headaches, nocturnal hypoxemia suggested by smart watch Patient reports a typical bedtime of 9-10 pm. It takes varying times to fall asleep, sometimes as late as 11:30 PM Patient awakens sometimes 1-2 times overnight, sometimes to go to the bathroom or for unclear reason; sometimes sleeps through the night. It takes varying times to return to sleep. Sometimes it takes up to 2 hours. Patient awakens for the day at 5:20-5:30 AM, feeling varying, sometimes very tired, sometimes pretty well rested; sometimes wakes up with a bad [place]. Patient does get sleepy or tired during the day. Patient does sometimes take naps. On Friday afternoons she may try to nap. Refreshing if she only sleeps 20-30 minutes. Does not seem to affect how long it takes to fall asleep at night. Patient does have caffeine, soda some days. The patient reports having ("+" indicates reports, "-" indicates denies): + Snoring - Observed apneas - Choking/gasping awakenings + Mouth breathing + Acid reflux at night, worse in the past month or so sometimes Nocturia + Morning headaches infrequent Night sweats, though she notes she now sleeps hot (now wears shorts & T-shirt without covers) unsure Teeth grinding Restless Legs Syndrome Symptoms ("+" indicates reports, "-" indicates denies): - Urge to move legs at night Parasomnias Symptoms ("+" indicates reports, "-" indicates denies): - Sleepwalking - Dream-enactment Rare "night terror" (screaming in sleep) Narcoleptic Symptoms ("+" indicates reports, "-" indicates denies): + Vivid dreams - Dreams with short naps - Sleep paralysis - Sleep-related hallucinations - Cataplexy Excessive Daytime Sleepiness: [place] Sleepiness Scale 10 Modified F.O.S.Q. 26 no Drowsy driving, except with longer drives (will take a break when needed, e.g. if driving past [place]). + Sleepy with sedentary activity [place] Sleepiness Scale Question 06/25/2024 7:03 PM EST - Filed by Patient What is the chance you will doze off in the following situation? Sitting and reading High chance of dozing Watching TV Moderate chance of dozing Sitting inactive in a public place, such as a theater or meeting Slight chance of dozing As a passenger in a car for an hour without a break Slight chance of dozing Lying down to rest in the afternoon when circumstances permit High chance of dozing When sitting and talking to someone No chance of dozing When sitting quietly after lunch without alcohol No chance of dozing In a car, while stopped for a few minutes in traffic No chance of dozing Score (range: 0 - 24) 10 Functional Outcomes Of Sleep Question 06/25/2024 7:04 PM EST - Filed by Patient Please complete the following questions. Do you have difficulty concentrating because you are sleepy or tired? Yes, moderate Do you have difficulty remembering things because you are sleepy or tired? Yes, moderate Do you have difficulty operating a motor vehicle for short distances (less than 100 miles) because you become sleepy? No Do you have difficulty operating a motor vehicle for long distances (more than 100 miles) because you become sleepy? Yes, moderate Do you have difficulty visiting family or friends in their home because you become sleepy or tired?No Has your relationship with family, friends, or work colleagues been affected because you are sleepyor tired? Yes, a little Do you have difficulty watching a movie or video because you become sleepy or tired? Yes, moderate Do you have difficulty being as active as you want to be in the evening because you are tired or sleepy? Yes, extreme Do you have difficulty being as active as you want to be in the morning because you are tired or sleepy? Yes, a little Has your mood been affected because you are sleepy or tired? Yes, a little Score (range: 10 - 40) 26 Travel Screening Question 06/28/2024 10:02 AM EST - Filed by Patient Do you have any of the following new or worsening symptoms? None of these Have you recently been in contact with someone who was sick? No / Unsure Sleep hygiene: Bedroom dark? yes Noise? quiet Watch TV in bed? no Clockwatching? yes Prior sleep study: none PMH: HTN Past Medical History: Diagnosis Date Allergic rhinitis [...] 11/09/2010 Iron deficiency anemia 02/26/2012 LOC PRIM FRYAPIST-E-[id number] 12/24/2007 Obesity, Class I, BMI 30.0-34.9 (see actual BMI) 04/26/2024 Other constipation 12/08/2012 Other specified forms of osteochondropathy 1995 osteochondroma removed r Tibial plateau Palpitations 11/09/2010 Paroxysmal VT (HCC) 08/30/2010 Rosacea Vitamin B deficiency 03/2008 Vitamin B12 deficiency Past Surgical History: Procedure Laterality Date ARTHO,SHOUL,W/ROTATOR CUFF Left 10/16/2020 ARTHROSCOPY SHOULDER ROTATOR CUFF performed by Chantal Meyer DO at [facility] COLONOSCOPY, DIAGNOSTIC (RECTUM) 07/24/11 internal hemorroids,repeat colonoscopy at age 49 COLONOSCOPY, DIAGNOSTIC (RECTUM) 08/13/2019 normal, repeat 10 yrs/COLONOSCOPY FLEXIBLE PROXIMAL DIAGNOSTIC performed by Carmenza Bernal DO at ENDOSCOPY [facility] EGD, FLEXIBLE, DIAGNOSTIC 08/13/2019 inflammatory changes on bx/ESOPHAGOGASTRODUODENOSCOPY (EGD), FLEXIBLE, TRANSORAL, DIAGNOSTIC performed by Carmenza Bernal DO at ENDOSCOPY [facility] EGD, W/ENDOSCOPIC US 09/20/2013 ESOPHAGOGASTRODUODENOSCOPY (EGD), FLEXIBLE, TRANSORAL, ENDOSCOPIC ULTRASOUND performed by Carmenza Bernal DO at [facility] FLUORO BARIUM ENEMA 08/28 KNEE ARTHROSCOPY/MENISCECTOMY Right 10/21/2022 ARTHROSCOPY KNEE MEDIAL OR LATERAL MENISCECTOMY performed by Darrell Floyd MD at [facility] KNEE ARTHROSCOPY/MENISCUS REPAIR Right 10/21/2022 ARTHROSCOPY KNEE WITH MENISCUS REPAIR performed by Darrell Floyd MD at OR [facility] LAPAROSCOPY; CHOLECYSTECTOMY 09/30/13 Laparoscopic Cholecystectomy 09/30/13 [facility] Bernal LAPAROSCOPY;APPENDECTOMY 10/22/2016 10/22/2016 [facility] Dr Malone. path benign SHOULDER ARTHROSCOPY, BICEPS TENODESIS 10/16/2020 ARTHROSCOPY SHOULDER BICEP TENODESIS performed by Chantal Meyer DO at [facility] SIGMOIDOSCOPY, DIAGNOSTIC 08/28 THIGH/KNEE TUMOR RESECTION, UNDER 5 CM 1993 right proximal tibial plateau osteochondroma US IUD PLACEMENT GUIDANCE 12/17/13 Deviated septum repair with sinus surgery ALLERGIES: Review of patient's allergies indicates: Allergen Reactions Fexofenadine constipation Lisinopril Cough Penicillins rash Sulfa Antibiotics rash MEDS: Current Outpatient Medications Medication Sig Dispense Refill Womens Multi Vitamin & Mineral Oral Tablet Take by mouth. Sertraline HCl 50 MG Oral Tablet (Zoloft) Take 1 Tablet by mouth in the morning. 90 Tablet 3 hydrOXYzine HCl 25 MG Oral Tablet Take 1 Tablet by mouth every 6 hours as needed for Anxiety. 40 Tablet 3 Pantoprazole Sodium 40 MG Oral Tablet Delayed Release (Protonix) Take 1 Tablet by mouth in the morning. 30 minutes before the first meal of the day. Do not crush, split or chew the tablet. 90 Tablet 3 Losartan Potassium 25 MG Oral Tablet (Cozaar) Take 1 Tablet by mouth in the morning. 90 Tablet 3 Ventolin HFA 108 (90 Base) MCG/ACT Inhalation Aerosol Solution Inhale 2 Puffs by mouth every 4 hours as needed for Wheezing. May substitute proventil or ventolin 18 g 5 Cyanocobalamin (B-12-SL) [address] 1,000 mcg under the tongue daily. 90 Tab 3 No current facility-administered medications for this visit. Rarely needs the hydroxyzine now. 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 GEN: Ambulatory, obese, NAD ORAL: Hard palate normal Oral mucous membranes moist OP: No thrush or lesions Uvula normal Soft palate normal Mallampati 3 Tonsils 2+ NECK: Circumference 15" RESP: Unlabored respirations Breath sounds clear, no wheezes or rales CVS: Regular rate and rhythm No murmur NEURO: Speech clear and appropriate IMPRESSION/RECOMMENDATIONS: Snoring, variable insomnia, daytime sleepiness, fatigue, morning headaches, HTN - suspect JOCE - STOP-BANG 4 (snoring, tired, HTN, and age > 50) - Discussed the pathophysiology, implications on short- and long-term health, diagnostic evaluation, and likely treatment options of JOCE (note that she is concerned about being able to tolerate a CPAP mask due to claustrophobia and anxiety) - WatchPAT home sleep apnea test to evaluate for JOCE. Discussed that if the HSAT does not show JOCE,we will recommend in-lab PSG. - Avoid driving when sleepy/drowsy. Please verify the following with the patient before ordering WatchPAT study: Does patient have Wifi? Yes Does patient have smart phone? Yes Do they have acrylic nails or nail yemeni? Yes: please remove for duration of the study Do they have a pacemaker? No Are they on alphablockers? Please list which med is the alphablocker: no What is the phone number of the cell phone they will be using? [phone] Follow-up: Return MyG with WatchPAT results. | Check-out note: WatchPAT same day Malena Whiting, DO documented in this encounter Nursing Notes * Alexandra Flores LPN - 06/28/2024 10:06 AM EST Chief Complaint Patient presents with NEW PATIENT Snoring Fatigue Headache No PSG HX Neck: 15" [place] Sleepiness Scale Question 06/25/2024 7:03 PM EST - Filed by Patient What is the chance you will doze off in the following situation? Sitting and reading High chance of dozing Watching TV Moderate chance of dozing Sitting inactive in a public place, such as a theater or meeting Slight chance of dozing As a passenger in a car for an hour without a break Slight chance of dozing Lying down to rest in the afternoon when circumstances permit High chance of dozing When sitting and talking to someone No chance of dozing When sitting quietly after lunch without alcohol No chance of dozing In a car, while stopped for a few minutes in traffic No chance of dozing Score (range: 0 - 24) 10 Functional Outcomes Of Sleep Question 06/25/2024 7:04 PM EST - Filed by Patient Please complete the following questions. Do you have difficulty concentrating because you are sleepy or tired? Yes, moderate Do you have difficulty remembering things because you are sleepy or tired? Yes, moderate Do you have difficulty operating a motor vehicle for short distances (less than 100 miles) because you become sleepy? No Do you have difficulty operating a motor vehicle for long distances (more than 100 miles) because you become sleepy? Yes, moderate Do you have difficulty visiting family or friends in their home because you become sleepy or tired?No Has your relationship with family, friends, or work colleagues been affected because you are sleepyor tired? Yes, a little Do you have difficulty watching a movie or video because you become sleepy or tired? Yes, moderate Do you have difficulty being as active as you want to be in the evening because you are tired or sleepy? Yes, extreme Do you have difficulty being as active as you want to be in the morning because you are tired or sleepy? Yes, a little Has your mood been affected because you are sleepy or tired? Yes, a little Score (range: 10 - 40) 26 Travel Screening Question 06/28/2024 10:02 AM EST - Filed by Patient Do you have any of the following new or worsening symptoms? None of these Have you recently been in contact with someone who was sick? No / Unsure documented in this encounter Plan of Treatment Upcoming Encounters Date Type Department Care Team (Late st Contact Info) Description 08/11/2024 9:00 AM EST Imaging Radiology [address] [place] [address] 08/25/2024 12:00 PM EST Office Visit Family [facility] [address] [place] [address] Kyaw Khan MD [address] [place] [address] Scheduled Orders Name Type Priority Associated Diagnoses [...] as of this encounter Visit Diagnoses Diagnosis Sleep apnea, unspecified type- Primary Snoring Other dyspnea and respiratory abnormality Insomnia, unspecified type Fatigue, unspecified type Hypersomnolence Hypersomnia, unspecified HTN, goal below 130/80 Unspecified essential hypertension documented in this encounter [...] and were consensually agreed upon. Care Teams Agriculture Science Teacher Relationship Specialty Start Date End Date Kyaw Khan MD [address] [place] [id number] PCP - General Family Medicine 03/27/16 documented as of this encounter
--- OUTSIDE RECORDS SUMMARY | 2024-08-30 07:14 | External Medical Summary | Summary of Care ---
Author Name Unknown Organization [facility] Address [address] [place] [address] Phone [phone] Care Team Providers Care Bushing And Broach Operator Name Role Phone Kyaw Khan MD Primary Care Provider + Reason for Visit * Reason Onset Date Comments Sleep Apnea Device 07/13/2024 Encounter Details Date Type Department Care Team (Late st Contact Info) Description 07/13/2024 Telephone Sleep Lab, [facility] [address] [place] [address] Malena Whiting, DO [address] [place] [address] Sleep Apnea Device Allergies Active Allergy Reactions [...] Start Date Job End Date [employer] [facility] [facility] [facility] office. 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 Not on file [...] Description 08/11/2024 9:00 AM EST Imaging Radiology [address] [place] [address] 08/25/2024 12:00 PM EST Office Visit Family [facility] [address] [place] [address] Kyaw Khan MD [address] [place] [address] Scheduled Procedures Name Priority Associated Diagnoses Date/Ti [...] and were consensually agreed upon. Care Teams Bushing And Broach Operator Relationship Specialty Start Date End Date Kyaw Khan MD [address] [place] [id number] PCP - General Family Medicine 03/27/16 documented as of this encounter
[2024-08-30 07:39] LABS: Basophils # (auto) 0.04 K/uL (0.00-0.20); Basophils % (auto) 0.7 %; Eosinophils # (auto) 0.01 K/uL (0.00-0.50); Eosinophils % (auto) 0.2 %; Hematocrit (blood only) 42.8 % (37.0-47.0); Hemoglobin 14.4 g/dl (12.0-16.0); Immature Granulocytes # (auto) 0.01 K/uL (0.01-0.20); Immature Granulocytes % (auto) 0.2 %; Lymphocytes # (auto) 0.83 K/uL (1.20-3.40); Lymphocytes % (auto) 14.4 %; Mean Corpuscular Hemoglobin 30.2 pg (25.0-34.0); Mean Corpuscular Hgb Conc 33.6 g/dL (32.0-36.0); Mean Corpuscular Volume 89.7 fL (80.0-100.0); Mean Platelet Volume 9.3 fL (9.4-12.4); Monocytes # (auto) 0.63 K/uL (0.11-0.59); Neutrophils # (auto) 4.23 K/uL (1.40-6.50); Neutrophils % (auto) 73.5 %; Platelet Count 205 K/uL (130-400); RDW Coefficient of Variation 13.1 % (11.5-14.5); RDW Standard Deviation 43.1 fL (36.4-46.3); Red Blood Count 4.77 M/uL (4.20-5.40); White Blood Count 5.75 K/ul (4.8-10.8)
[2024-08-30 07:56] LABS: Albumin Globulin Ratio 1.4 (0.9-2); Albumin Level 4.4 gm/dl (3.4-5.0); BUN Creatinine Ratio 13.8 (10-20); Bilirubin,Total 0.6 mg/dl (0.2-1.0); Calcium 9.6 mg/dl (8.6-10.3); Globulin 3.2 gm/dl (2.5-4.0); Potassium 3.7 mmol/L (3.5-5.1); Total Protein 7.6 gm/dl (6.0-8.3)
--- NOTE | 2024-08-30 08:26 | XRay Report ---
EXAM: XR chest 1V not portable CLINICAL HISTORY: cough and shortness of breath TECHNIQUE: X-ray image of the chest obtained in 1 frontal projection. COMPARISON: Prior X-ray dated 07/04/2017 for comparison. FINDINGS: Pulmonary Parenchyma: Prominent bilateral parahilar markings. No evidence of consolidation, collapse, or focal opacities. No pulmonary nodules identified. No evidence of pleural effusion or pleural thickening. Heart and Mediastinum: Heart size and shape are normal. No mediastinal widening or masses. No hilar or mediastinal lymphadenopathy. Bony Thorax: Bony thorax appears intact without fractures or deformities. Soft Tissues: Soft tissues overlying the chest wall are unremarkable. IMPRESSION: 1. Prominent bilateral parahilar markings likely congestion. 2. No evidence of pulmonary consolidation or focal opacities, stable. Electronically signed by Fco Helm 08-30-2024 08:25 AM
[2024-08-30 08:37] LABS: Adenovirus PCR Not Detected (NotDetected); Bordetella parapertussis PCR Not Detected (NotDetected); Bordetella pertussis PCR Not Detected (NotDetected); Chlamydia pneumoniae PCR Not Detected (NotDetected); Coronavirus 229E PCR Not Detected (NotDetected); Coronavirus CoV-2 (COVID19)PCR Not Detected (NotDetected); Coronavirus HKU1 PCR Not Detected (NotDetected); Coronavirus NL63 PCR Not Detected (NotDetected); Coronavirus OC43PCR Not Detected (NotDetected); Human Metapneumovirus PCR Not Detected (NotDetected); Influenza A (H1 2009) PCR DETECTED (NotDetected); Influenza B PCR Not Detected (NotDetected); Mycoplasma pneumoniae PCR Not Detected (NotDetected); Parainfluenza Virus 1 PCR Not Detected (NotDetected); Parainfluenza Virus 2 PCR Not Detected (NotDetected); Parainfluenza Virus 3 PCR Not Detected (NotDetected); Parainfluenza Virus 4 PCR Not Detected (NotDetected); Respiratory Syncytial VirusPCR Not Detected (NotDetected); Rhinovirus/Enterovirus PCR Not Detected (NotDetected)
[2024-08-30] MEDS: ONDANSETRON INJ 2 MG/ML 2 ML VIAL IV STA (08:37)
[2024-08-30] MEDS: SODIUM CHLORIDE 0.9% 1,000 ML IV ONE (08:37)
[2024-08-30] MEDS: FAMOTIDINE 20MG IV PUSH 20 MG/5 ML SYR IV STA (08:37)
[2024-08-30] MEDS: ACETAMINOPHEN 1,000 MG/100 ML VIAL IV STA (08:38)
--- NOTE | 2024-08-30 08:53 | Emergency Department Note ---
Impression & Plan Hypoxia, Influenza, Dehydration ED Provider Note ED Provider Note NAME: NOEMI WESLEY AGE:54 SEX: Female : 1970 ARRIVES VIA: Private vehicle INFORMANT: Patient ED PROVIDER(s): María Elena Nelson DO CHIEF COMPLAINT: Fever, body aches, cough HPI: This is a 54-year-old female who presents emergency room due to concern for fever, body aches, cough. She states she first began noticing symptoms on Friday. She states they worsened over the weekend with increased fatigue, decreased appetite, 2 episodes of vomiting, as well as chest discomfort with coughing. She states the cough is mostly nonproductive. She denies any overt diarrhea, leg swelling, rash or sores. She denies nasal congestion or rhinorrhea. She does admit to accompanying headaches and sore throat. No known sick contact. She does have a prior history of exercise-induced asthma although was never had any problems in recent years. No history of heart problems. No history of smoking. No recent travel. PAST MEDICAL HISTORY:See Below PAST SURGICAL HISTORY:See Below FAMILY HISTORY:See Below SOCIAL HISTORY:See Below HOME MEDICATIONS:See Below ALLERGIES:See Below VITALS:See Below PHYSICAL EXAMINATION: GENERAL: alert, ill appearing, well nourished, no distress, non-toxic EYE EXAM: normal conjunctiva, PERRL and EOM's grossly intact OROPHARYNX: no exudate, no erythema, lips, buccal mucosa, and tongue normal and mucous membranes are moist NECK: supple, no nuchal rigidity, no adenopathy, non-tender LUNGS: Clear but decreased to auscultation. Normal chest wall mechanics, no w/r/r, frequent coarse cough noted during exam HEART: no murmurs, S1 normal and S2 normal ABDOMEN: abdomen soft, non-tender, normo-active bowel sounds, no masses, no rebound or guarding. SKIN: no rashes, petechiae, orbruising UPPER EXTREMITIES: upper extremities are grossly normal. FROM, nml pulses b/l. LOWER EXTREMITIES: No pitting edema. FROM, nml pulses b/l. NEURO EXAM: Normal sensorium, cranial nerves II-XII grossly intact, normal speech, no facial droop,nogross weakness of arms, no gross weakness of legs. Gross sensation intact. No ataxia. Vital Signs: reviewed and remarkable Differential Diagnosis: Viral syndrome, bronchitis, pneumonia, CHF, pericarditis/myocarditis, dehydration, FREIDA, UTI, as well as others were considered MEDICAL DECISION MAKING: This is a 54-year-old female who presents emergency department with several days of fevers and chills, cough, sore throat, myalgias, and decreased oral intake. Labs drawn and sent, IV established, EKG and chest x-ray performed at bedside interpreted by me and patient monitored on telemetry. Nasal swab obtained and sent additionally. Patient started on IV fluids and given Tessalon Perle, DuoNeb, IV Pepcid and IV Zofran. Patient's labs reassuring however nasal swab positive for influenza. Patient noted to desaturate into the 80s on several occasions and was placed on oxygen via nasal cannula. Patient updated on all results. Her nausea was improved and she was tolerating p.o. however due to concern for the hypoxia in the setting of her known acute viral illness, we discussed additional inpatient management. She verbalized understanding. Case discussed with the hospitalist team additionally. Consultation(s): 1023: Discussed with Franny Posadas hospitalist team, for additional evaluation and management. ER Treatment Provided: See below 0850: Nursing staff reported patient's pulse ox dropped to 85%. She was placed on oxygen via nasal cannula with improvement to the mid 90s. Diagnostics Interpreted By Me: -ECG: Sinus tachycardia at 102, leftward axis, normal intervals, no acute ST/T wave changes -Cardiac Monitoring: An order was placed for continuous cardiac monitoring. The monitor shows a rate of 98 with normal sinus rhythm. -Laboratory studies: As stated above and show below. -Imaging studies: X-ray Chest: A single view study of the chest was reviewed and was negative for cardiomegaly, focal infiltrate, effusion, pulmonary edema, or wide mediastinum. Triage Nursing Note Reviewed Prior/Outside Records Reviewed Past Med/Surg History Problem List (Updated 08/30/24 @ 11:36 by Background Daemon) Influenza A Dehydration (Acute) Influenza (Acute) Hypoxia (Acute) Medical History (Updated 08/30/24 @ 11:36 by Background Daemon) Dyslipidemia IBS (irritable bowel syndrome) Fatty liver Anxiety and depression Hypertension Vertigo History of anemia History of COVID-19 05/2021 (STILL HAVING VERTIGO PROBLEMS) Slow to wake up after anesthesia Frozen shoulder syndrome left GERD (gastroesophageal reflux disease) Asthma no issues for several yrs. doesn't use inhaler> allergy related Surgical History (Updated 05/21/24 @ 11:28 by Katelyn Ross MD) History of cholecystectomy History of appendectomy History of cataract surgery RT History of anesthesia reaction gets bad anxiety prior to receiving anesthesia History of arthroscopy left shoulder x2 History of arthroscopy right knee History of esophagogastroduodenoscopy (EGD) History of colonoscopy History of tooth extraction History of endoscopic sinus surgery Family History (Updated 08/30/24 @ 10:12 by Maureen Aponte PA-C) Mother Diabetes Heart disease [place] at 55 Father Prostate cancer Heart disease Other Hypertension Kidney disease No family history of adverse response to anesthesia Denies family history of Ovarian cancer Breast cancer Colorectal cancer Uterine cancer Social History (Updated 05/21/24 @ 11:19 by CONCEPCION Vallecillo) Smoking Status: Never smoker Second Hand Exposure: No; Do You Dip or Chew Tobacco: No; Hx Alcohol Use: Yes Alcohol type: beer and wine Hx Substance Use: No Preferred Language: Spanish Communication Ability: Effective 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 Beliefs That Will Affect Care: None marital status: Current Living Situation: Spouse current occupational status: employed 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 Other Information That Helps Us Care for You: No Feels Safe at Home: Yes Safety Concerns: Feels Safe At This Time caffeine: Yes Dental Care, Regularly: Yes Seatbelt Use: always Sunscreen Use: Yes Assistive Devices: Glasses Allergies Allergies Allergy/AdvReac Type Severity Reaction Status Date / Time Sulfa (Sulfonamide Allergy Intermediate RASH AND Verified 06/09/24 13:57 Antibiotics) HIVES Penicillins Allergy Unknown unsure of Verified 06/09/24 13:57 reaction fexofenadine AdvReac Mild constipatio Verified 06/09/24 13:57 n Home Meds Home Medications Medication Instructions Recorded Confirmed cyanocobalamin (vitamin B-12) 1,000 mcg PO DAILY 03/19/21 08/30/24 1,000 mcg tablet pantoprazole 40 mg tablet,delayed 40 mg PO QAM 03/19/21 08/30/24 release losartan 25 mg tablet 25 mg PO DAILY 05/21/24 08/30/24 sertraline 50 mg tablet 50 mg PO DAILY 08/30/24 08/30/24 Results & Data (ED) Vital Signs Vital Signs - 24 hr 08/30/24 07:14 08/30/24 07:27 08/30/24 07:30 Temperature 37.5 C Temperature Source Oral Pulse Rate 122 H 100 H Pulse Rate [Apical] 110 H Pulse Rate from SpO2 Sensor Respiratory Rate 24 25 H Respiratory Effort / Characteristics Non-Labored Spontaneous Respiratory Depth Normal Respiratory Pattern Regular Blood Pressure 141/85 H Blood Pressure [Left Arm] 160/86 H Blood Pressure Mean 103 Blood Pressure Mean [Left Arm] 110 Blood Pressure Position Sitting Pulse Oximetry 97 92 Oxygen Delivery Method Room Air Room Air Oxygen Flow Rate Sepsis Recent Fever Within 48 Hours Yes Sepsis New/Unexplained Change in Mental Status No Sepsis Action Taken by Nursing No Action Required Oxygen Flow Rate - Titration Pulse Oximetry Post Tiitration 08/30/24 07:42 08/30/24 07:54 08/30/24 07:57 Temperature Temperature Source Pulse Rate 96 H 101 H 101 H Pulse Rate [Apical] Pulse Rate from SpO2 Sensor 99 H 102 H 101 H Respiratory Rate 18 20 18 Respiratory Effort / Characteristics Respiratory Depth Respiratory Pattern Blood Pressure Blood Pressure [Left Arm] Blood Pressure Mean Blood Pressure Mean [Left Arm] Blood Pressure Position Pulse Oximetry 91 91 97 Oxygen Delivery Method Oxygen Flow Rate Sepsis Recent Fever Within 48 Hours Sepsis New/Unexplained Change in Mental Status Sepsis Action Taken by Nursing Oxygen Flow Rate - Titration Pulse Oximetry Post Tiitration 08/30/24 08:00 08/30/24 08:03 08/30/24 08:12 Temperature Temperature Source Pulse Rate 100 H 103 H Pulse Rate [Apical] Pulse Rate from SpO2 Sensor 101 H 108 H Respiratory Rate 16 24 Respiratory Effort / Characteristics Respiratory Depth Respiratory Pattern Blood Pressure 176/103 H Blood Pressure [Left Arm] Blood Pressure Mean 142 Blood Pressure Mean [Left Arm] Blood Pressure Position Pulse Oximetry 94 90 Oxygen Delivery Method Oxygen Flow Rate Sepsis Recent Fever Within 48 Hours Sepsis New/Unexplained Change in Mental Status Sepsis Action Taken by Nursing Oxygen Flow Rate - Titration Pulse Oximetry Post Tiitration 08/30/24 08:21 08/30/24 08:30 08/30/24 08:45 Temperature Temperature Source Pulse Rate 106 H 92 H Pulse Rate [Apical] Pulse Rate from SpO2 Sensor 107 H 94 H Respiratory Rate 20 21 Respiratory Effort / Characteristics Respiratory Depth Respiratory Pattern Blood Pressure 161/93 H Blood Pressure [Left Arm] Blood Pressure Mean 108 Blood Pressure Mean [Left Arm] Blood Pressure Position Pulse Oximetry 90 95 Oxygen Delivery Method Oxygen Flow Rate Sepsis Recent Fever Within 48 Hours Sepsis New/Unexplained Change in Mental Status Sepsis Action Taken by Nursing Oxygen Flow Rate - Titration Pulse Oximetry Post Tiitration 08/30/24 08:47 08/30/24 08:57 08/30/24 09:00 Temperature Temperature Source Pulse Rate 95 H Pulse Rate [Apical] Pulse Rate from SpO2 Sensor 95 H Respiratory Rate 20 Respiratory Effort / Characteristics Respiratory Depth Respiratory Pattern Blood Pressure 157/87 H Blood Pressure [Left Arm] Blood Pressure Mean 106 Blood Pressure Mean [Left Arm] Blood Pressure Position Pulse Oximetry 85 L 93 Oxygen Delivery Method Nasal Cannula Oxygen Flow Rate 0 Sepsis Recent Fever Within 48 Hours Sepsis New/Unexplained Change in Mental Status Sepsis Action Taken by Nursing Oxygen Flow Rate - Titration 2 Pulse Oximetry Post Tiitration 96 08/30/24 09:03 08/30/24 09:09 08/30/24 09:12 Temperature Temperature Source Pulse Rate 93 H 96 H Pulse Rate [Apical] 98 H Pulse Rate from SpO2 Sensor 93 H 96 H Respiratory Rate 19 24 19 Respiratory Effort / Characteristics Respiratory Depth Respiratory Pattern Blood Pressure Blood Pressure [Left Arm] 157/87 H Blood Pressure Mean Blood Pressure Mean [Left Arm] 110 Blood Pressure Position Pulse Oximetry 96 96 96 Oxygen Delivery Method Nasal Cannula Oxygen Flow Rate 2 Sepsis Recent Fever Within 48 Hours Sepsis New/Unexplained Change in Mental Status Sepsis Action Taken by Nursing Oxygen Flow Rate - Titration Pulse Oximetry Post Tiitration 08/30/24 09:21 08/30/24 09:24 08/30/24 09:30 Temperature Temperature Source Pulse Rate 102 H 91 H Pulse Rate [Apical] Pulse Rate from SpO2 Sensor 101 H 92 H Respiratory Rate 23 21 Respiratory Effort / Characteristics Respiratory Depth Respiratory Pattern Blood Pressure 129/90 Blood Pressure [Left Arm] Blood Pressure Mean 104 Blood Pressure Mean [Left Arm] Blood Pressure Position Pulse Oximetry 94 95 Oxygen Delivery Method Oxygen Flow Rate Sepsis Recent Fever Within 48 Hours Sepsis New/Unexplained Change in Mental Status Sepsis Action Taken by Nursing Oxygen Flow Rate - Titration Pulse Oximetry Post Tiitration 08/30/24 09:30 08/30/24 09:42 08/30/24 09:54 Temperature Temperature Source Pulse Rate 91 H 95 H Pulse Rate [Apical] Pulse Rate from SpO2 Sensor 90 102 H Respiratory Rate 15 21 Respiratory Effort / Characteristics Respiratory Depth Respiratory Pattern Blood Pressure 129/90 Blood Pressure [Left Arm] Blood Pressure Mean 104 Blood Pressure Mean [Left Arm] Blood Pressure Position Pulse Oximetry 94 96 Oxygen Delivery Method Oxygen Flow Rate Sepsis Recent Fever Within 48 Hours Sepsis New/Unexplained Change in Mental Status Sepsis Action Taken by Nursing Oxygen Flow Rate - Titration Pulse Oximetry Post Tiitration 08/30/24 10:00 08/30/24 10:21 08/30/24 10:30 Temperature Temperature Source Pulse Rate 103 H Pulse Rate [Apical] Pulse Rate from SpO2 Sensor 102 H Respiratory Rate 16 Respiratory Effort / Characteristics Respiratory Depth Respiratory Pattern Blood Pressure 155/84 H 159/113 H Blood Pressure [Left Arm] Blood Pressure Mean 100 118 Blood Pressure Mean [Left Arm] Blood Pressure Position Pulse Oximetry 96 Oxygen Delivery Method Oxygen Flow Rate Sepsis Recent Fever Within 48 Hours Sepsis New/Unexplained Change in Mental Status Sepsis Action Taken by Nursing Oxygen Flow Rate - Titration Pulse Oximetry Post Tiitration 08/30/24 10:30 08/30/24 10:30 08/30/24 10:33 Temperature Temperature Source Pulse Rate 103 H Pulse Rate [Apical] Pulse Rate from SpO2 Sensor 103 H Respiratory Rate 23 Respiratory Effort / Characteristics Respiratory Depth Respiratory Pattern Blood Pressure 159/113 H 159/113 H Blood Pressure [Left Arm] Blood Pressure Mean 118 118 Blood Pressure Mean [Left Arm] Blood Pressure Position Pulse Oximetry 98 Oxygen Delivery Method Oxygen Flow Rate Sepsis Recent Fever Within 48 Hours Sepsis New/Unexplained Change in Mental Status Sepsis Action Taken by Nursing Oxygen Flow Rate - Titration Pulse Oximetry Post Tiitration Laboratory Data 08/30/24 07:25 08/30/24 07:25 Lab Results 08/30/24 08/30/24 Range/Units 07:20 07:25 WBC 5.75 (4.8-10.8) K/ul RBC 4.77 (4.20-5.40) M/uL Hgb 14.4 (12.0-16.0) g/dl Hct 42.8 (37.0-47.0) % MCV 89.7 (80.0-100.0) fL MCH 30.2 (25.0-34.0) pg MCHC 33.6 (32.0-36.0) g/dL RDW Std Deviation 43.1 (36.4-46.3) fL RDW Coeff of Harinder 13.1 (11.5-14.5) % Plt Count 205 (130-400) K/uL MPV 9.3 L (9.4-12.4) fL Immature Gran % (Auto) 0.2 % Neut % (Auto) 73.5 % Lymph % (Auto) 14.4 % [place] % (Auto) 11.0 % Eos % (Auto) 0.2 % Baso % (Auto) 0.7 % Neut # (Auto) 4.23 (1.40-6.50) K/uL Lymph # (Auto) 0.83 L (1.20-3.40) K/uL [place] # (Auto) 0.63 H (0.11-0.59) K/uL Eos # (Auto) 0.01 (0.00-0.50) K/uL Baso # (Auto) 0.04 (0.00-0.20) K/uL Immature Gran # (Auto) 0.01 (0.01-0.20) K/uL Sodium 138 (136-145) mmol/L Potassium 3.7 (3.5-5.1) mmol/L Chloride 104 (98-107) mmol/L Carbon Dioxide 26 (21-32) mmol/L Anion Gap 8 (3-11) BUN 8 (6-23) mg/dl Creatinine 0.58 L (0.6-1.2) mg/dl Est Cr Clr Drug Dosing 132.0 ml/min eGFR 106.81 BUN/Creatinine Ratio 13.8 (10-20) Glucose 122 H (70-99(Fasting)) mg/dl Calcium 9.6 (8.6-10.3) mg/dl Total Bilirubin 0.6 (0.2-1.0) mg/dl AST 40 H (13-39) U/L ALT 53 H (7-52) U/L Alkaline Phosphatase 74 (34-104) U/L Total Protein 7.6 (6.0-8.3) gm/dl Albumin 4.4 (3.4-5.0) gm/dl Globulin 3.2 (2.5-4.0) gm/dl Albumin/Globulin Ratio 1.4 (0.9-2) Nasal Influ A H1 2008 PCR DETECTED A (NotDetected) Adenovirus (PCR) Not Detected (NotDetected) B. pertussis DNA (PCR) Not Detected (NotDetected) B.parapertussis DNA PCR Not Detected (NotDetected) C. pneumoniae DNA (PCR) Not Detected (NotDetected) Coronavirus OC43 (PCR) Not Detected (NotDetected) Coronavirus HKU1 (PCR) Not Detected (NotDetected) Coronavirus 229E (PCR) Not Detected (NotDetected) SARS-CoV-2 (PCR) Not Detected (NotDetected) Coronavirus NL63 (PCR) Not Detected (NotDetected) Human Metapneumovir PCR Not Detected (NotDetected) Influenza Type B (PCR) Not Detected (NotDetected) M. pneumoniae (PCR) Not Detected (NotDetected) Parainfluenza 1 (PCR) Not Detected (NotDetected) Parainfluenza 2 (PCR) Not Detected (NotDetected) Parainfluenza 3 (PCR) Not Detected (NotDetected) Parainfluenza 4 (PCR) Not Detected (NotDetected) RSV (PCR) Not Detected (NotDetected) Entero/Rhino (PCR) Not Detected (NotDetected) Administered Medications Acetaminophen (Acetaminophen 325 Mg Tab) 650 mg PO Q4H PRN PRN Reason: Pain or Fever Stop: 09/29/24 11:40 Last Admin: 08/30/24 11:53 Dose: 650 mg Documented By: MELONIE Albuterol (Albut/Ipratrop 3mg/0.5mg Neb 3 Ml Vial) 3 ml NEB QIDR [facility]; Protocol Stop: 09/29/24 10:59 Last Admin: 08/30/24 13:04 Dose: Not Given Documented By: MILADIS Guaifenesin/Dextromethorphan (Guaifenesin/Dextrom Syrup 200mg/20mg 10ml Udc) 10 ml PO Q6H PRN PRN Reason: Cough Stop: 09/29/24 12:40 Last Admin: 08/30/24 15:51 Dose: 10 ml Documented By: MELONIE Sodium Chloride (Nss) 1,000 mls @ 80 mls/hr IV .[id number] [facility] Stop: 08/30/24 23:44 Last Admin: 08/30/24 11:53 Dose: 80 mls/hr Documented By: MELONIE Pantoprazole Sodium (Protonix) 40 mg in 10 mls @ 5 mls/min IV DAILY NOEMI Stop: 09/29/24 11:59 Last Admin: 08/30/24 12:09 Dose: 5 mls/min Documented By: MELONIE Discontinued Medications Albuterol (Albut/Ipratrop 3mg/0.5mg Neb 3 Ml Vial) 3 ml NEB NOW STA; Protocol Stop: 08/30/24 09:40 Last Admin: 08/30/24 10:06 Dose: 3 ml Documented By: JAMI Benzonatate (Benzonatate 100 Mg Capsule) 100 mg PO NOW ONE Stop: 08/30/24 09:40 Last Admin: 08/30/24 10:05 Dose: 100 mg Documented By: JAMI Sodium Chloride (Nss) 1,000 mls @ 999 mls/hr IV .Q1H1M ONE Stop: 08/30/24 09:29 Last Infusion: 08/30/24 11:16 Dose: Infused Documented By: Admin: 08/30/24 08:37 Dose: 999 mls/hr Documented By: JAMI Famotidine (Pepcid 20mg Iv Push) 20 mg in 5 mls @ 2.5 mls/min IV NOW STA Stop: 08/30/24 08:30 Last Admin: 08/30/24 08:37 Dose: 2.5 mls/min Documented By: JAMI Acetaminophen (Ofirmev) 1,000 mg in 100 mls @ 400 mls/hr IV NOW STA Stop: 08/30/24 08:43 Last Infusion: 08/30/24 09:32 Dose: Infused Documented By: Admin: 08/30/24 08:38 Dose: 400 mls/hr Documented By: JAMI Ondansetron HCl (Ondansetron Inj 2 Mg/Ml 2 Ml Vial) 4 mg IV NOW STA Stop: 08/30/24 08:30 Last Admin: 08/30/24 08:37 Dose: 4 mg Documented By: JAMI Imaging Data Radiologist's Impression: Chest X-Ray 08/30/24 07:27 EXAM: XR chest 1V not portable CLINICAL HISTORY: cough and shortness of breath TECHNIQUE: X-ray image of the chest obtained in 1 frontal projection. COMPARISON: Prior X-ray dated 07/04/2017 for comparison. FINDINGS: Pulmonary Parenchyma: Prominent bilateral parahilar markings. No evidence of consolidation, collapse, or focal opacities. No pulmonary nodules identified. No evidence of pleural effusion or pleural thickening. Heart and Mediastinum: Heart size and shape are normal. No mediastinal widening or masses. No hilar or mediastinal lymphadenopathy. Bony Thorax: Bony thorax appears intact without fractures or deformities. Soft Tissues: Soft tissues overlying the chest wall are unremarkable. IMPRESSION: 1. Prominent bilateral parahilar markings likely congestion. 2. No evidence of pulmonary consolidation or focal opacities, stable. Electronically signed by Fco Helm 08-30-2024 08:25 AM Discharge Plan Visit Data Chief Complaint: Illness Stated Complaint: COUGH,BODY ACHES,FEVER,HEADACHE ED Provider: María Elena Nelson Discharge Problem: Hypoxia, Influenza, Dehydration Patient Disposition: Admitted As Inpatient Discharge Instructions Interventions: ED Discharge Assessment Last Done: 08/30/24 11:16
[2024-08-30] MEDS: BENZONATATE 100 MG CAPSULE PO ONE (10:05)
[2024-08-30] MEDS: ALBUT/IPRATROP 3MG/0.5MG NEB 3 ML VIAL NEB STA (10:06)
--- NOTE | 2024-08-30 10:14 | History & Physical Report ---
Date of Service August 30, 2024 Assessment & Plan (1) Influenza A: (2) Hypoxia: (3) Hypertension: (4) GERD (gastroesophageal reflux disease): (5) Asthma: (6) Anxiety and depression: Plan This is a 54 y/o female with HTN, dyslipidemia, GERD, and prior history of allergy-induced asthma who presented to the ED today with progressive flu-like symptoms. Work-up in the ED was positive for influenza A. In the ED, she was also noted to be hypoxic at rest with oxygen sats in the mid-80s. Pulseox improved with 2L of O2 but due to the hypoxia, pt was referred for admission. Pt was given a DuoNeb with partial improvement but still significant chest tightness. Nausea has improved with famotidine and Zofran. #Influenza A #Hypoxia - Admit to med telemetry - Continue supplemental O2 - wean as tolerated - DuoNebs Q6 hrs scheduled and prn - Guaifenesin 600 mg BID - Prn anti-tussives - Isolation precautions - Pt outside the window for Tamiflu since 72 hours since symptoms started #Vomiting #Dehydration (mild) - Continue prn anti-emetics - Will give an additional one liter of IVF at 80 cc/hr - Clear liquid diet - advance as tolerated. #Hypertension - Resume home losartan once N/V improves #GERD - Will change PPI to IV initially then back to oral once N/V improves #Mood disorder - Continue outpatient sertraline once N/V improves Pt seen and reviewed with collaborating physician, Dr. Segundo. Plan of care discussed and as outlined above. Code status: Full code DVT Prophlaxis: Trinaleora I spent a total [id number] coordinating, documenting, and providing care for this patient excluding time spent in the performance of separately billed services or time spent by another provider/QHP. Eun Aponte PA-C History of Present Illness Chief Complaint: flu-like symptoms Primary Care Provider: Kyaw Khan MD This is a 54 y/o female with HTN, dyslipidemia, GERD, and prior history of allergy-induced asthma who presented to the ED today with progressive flu-like symptoms. She reports that symptoms started on Friday (3 days ago) and have progressively worsened. 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 She reports fevers with a Tmax of 101.9 for which she has been taking ibuprofen and acetaminophen. She has a non-productive cough, chest tightness, intermittent wheezing. Over the last 24 hours, she has developed nausea and vomiting but prior to that she has been able to maintain fluid intake. She notes fatigue with generalized body aches. Associated headache, particularly worse yesterday. Last episode of emesis was around 3:30 am today - reports improvement in nausea with meds in the ED, currently trying sips of fluids. Denies significant diarrhea, chest pain, nasal congestion, rhinorrhea. She did receive her flu vaccine this season. She reports upper respiratory illness 2-3 weeks ago that resolved without additional intervention (antibiotics prescribed but ended up not taking). She has a history allergy related asthma but reports no recent issues with breathing, does not take a maintenance inhaler and has no rescue inhaler at home since she has been doing well. No history of pneumonia. +hx of bronchitis. Denies prior smoking or secondhand smoke exposure. No history of COPD. Allergies Allergy/AdvReac Type Severity Reaction Status Date / Time Sulfa (Sulfonamide Allergy Intermediate RASH AND Verified 06/09/24 13:57 Antibiotics) HIVES Penicillins Allergy Unknown unsure of Verified 06/09/24 13:57 reaction fexofenadine AdvReac Mild constipatio Verified 06/09/24 13:57 n Home Medications Medication Instructions Recorded Confirmed Type cyanocobalamin (vitamin B-12) 1,000 mcg PO DAILY 03/19/21 08/30/24 History 1,000 mcg tablet pantoprazole 40 mg tablet,delayed 40 mg PO QAM 03/19/21 08/30/24 History release losartan 25 mg tablet 25 mg PO DAILY 05/21/24 08/30/24 History sertraline 50 mg tablet 50 mg PO DAILY 08/30/24 08/30/24 History Past Med/Surg History Problem List (Updated 08/30/24 @ 11:36 by Background Daemon) Influenza A Dehydration (Acute) Influenza (Acute) Hypoxia (Acute) Medical History (Updated 08/30/24 @ 11:36 by Background Daemon) Dyslipidemia IBS (irritable bowel syndrome) Fatty liver Anxiety and depression Hypertension Vertigo History of anemia History of COVID-19 05/2021 (STILL HAVING VERTIGO PROBLEMS) Slow to wake up after anesthesia Frozen shoulder syndrome left GERD (gastroesophageal reflux disease) Asthma no issues for several yrs. doesn't use inhaler> allergy related Surgical History (Updated 05/21/24 @ 11:28 by Katelyn Ross MD) History of cholecystectomy History of appendectomy History of cataract surgery RT History of anesthesia reaction gets bad anxiety prior to receiving anesthesia History of arthroscopy left shoulder x2 History of arthroscopy right knee History of esophagogastroduodenoscopy (EGD) History of colonoscopy History of tooth extraction History of endoscopic sinus surgery Family History (Updated 08/30/24 @ 10:12 by Maureen Aponte PA-C) Mother Diabetes Heart disease NC at 55 Father Prostate cancer Heart disease Other Hypertension Kidney disease No family history of adverse response to anesthesia Denies family history of Ovarian cancer Breast cancer Colorectal cancer Uterine cancer Social History (Updated 05/21/24 @ 11:19 by CONCEPCION Vallecillo) Smoking Status: Never smoker Second Hand Exposure: No; Do You Dip or Chew Tobacco: No; Hx Alcohol Use: Yes Alcohol type: beer and wine Hx Substance Use: No Preferred Language: Lithuanian Communication Ability: Effective Assistant Food Service Director Required: No Beliefs That Will Affect Care: None marital status: Current Living Situation: Spouse current occupational status: employed 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 Other Information That Helps Us Care for You: No Feels Safe at Home: Yes Safety Concerns: Feels Safe At This Time caffeine: Yes Dental Care, Regularly: Yes Seatbelt Use: always Sunscreen Use: Yes Assistive Devices: Glasses Review of Systems Review of Systems: All systems reviewed & are unremarkable except as noted in Subjective Physical Exam Physical Exam: General: awake, alert, appears ill but not in distress HEENT: no scleral icterus, moist mucus membranes Neck: supple, trachea midline Heart: regular but tachycardic Lungs: diminished but clear, occasional coarseness Abdomen: soft, NT, +BS Extremities: distal pulses intact and equal, no pedal edema Skin: warm, dry, no cyanosis or jaundice Neurologic: Ox3, moving all extremities, no focal deficits Results & Data Results & Data Vital Signs (Past 12 Hours) Vital Signs Temp Pulse Pulse Resp BP BP Pulse Ox 08/30/24 09:30 129/90 08/30/24 09:24 91 H 21 95 08/30/24 09:21 102 H 23 94 08/30/24 09:12 96 H 19 96 08/30/24 09:09 98 H 24 157/87 H 96 08/30/24 09:03 93 H 19 96 08/30/24 09:00 157/87 H 08/30/24 08:57 95 H 20 93 08/30/24 08:47 85 L 08/30/24 08:45 92 H 21 95 08/30/24 08:30 161/93 H 08/30/24 08:21 106 H 20 90 08/30/24 08:12 103 H 24 90 08/30/24 08:03 100 H 16 94 08/30/24 08:00 176/103 H 08/30/24 07:57 101 H 18 97 08/30/24 07:54 101 H 20 91 08/30/24 07:42 96 H 18 91 08/30/24 07:30 100 H 08/30/24 07:27 110 H 25 H 160/86 H 92 08/30/24 07:14 37.5 C 122 H 24 141/85 H 97 O2 Del Method O2 Flow Rate 08/30/24 09:30 08/30/24 09:24 08/30/24 09:21 08/30/24 09:12 08/30/24 09:09 Nasal Cannula 2 08/30/24 09:03 08/30/24 09:00 08/30/24 08:57 08/30/24 08:47 Nasal Cannula 0 08/30/24 08:45 08/30/24 08:30 08/30/24 08:21 08/30/24 08:12 08/30/24 08:03 08/30/24 08:00 08/30/24 07:57 08/30/24 07:54 08/30/24 07:42 08/30/24 07:30 08/30/24 07:27 Room Air 08/30/24 07:14 Room Air Laboratory Results Lab Results 08/30/24 08/30/24 Range/Units 07:20 07:25 WBC 5.75 (4.8-10.8) K/ul RBC 4.77 (4.20-5.40) M/uL Hgb 14.4 (12.0-16.0) g/dl Hct 42.8 (37.0-47.0) % MCV 89.7 (80.0-100.0) fL MCH 30.2 (25.0-34.0) pg MCHC 33.6 (32.0-36.0) g/dL RDW Std Deviation 43.1 (36.4-46.3) fL RDW Coeff of Harinder 13.1 (11.5-14.5) % Plt Count 205 (130-400) K/uL MPV 9.3 L (9.4-12.4) fL Immature Gran % (Auto) 0.2 % Neut % (Auto) 73.5 % Lymph % (Auto) 14.4 % Hays % (Auto) 11.0 % Eos % (Auto) 0.2 % Baso % (Auto) 0.7 % Neut # (Auto) 4.23 (1.40-6.50) K/uL Lymph # (Auto) 0.83 L (1.20-3.40) K/uL Hays # (Auto) 0.63 H (0.11-0.59) K/uL Eos # (Auto) 0.01 (0.00-0.50) K/uL Baso # (Auto) 0.04 (0.00-0.20) K/uL Immature Gran # (Auto) 0.01 (0.01-0.20) K/uL Sodium 138 (136-145) mmol/L Potassium 3.7 (3.5-5.1) mmol/L Chloride 104 (98-107) mmol/L Carbon Dioxide 26 (21-32) mmol/L Anion Gap 8 (3-11) BUN 8 (6-23) mg/dl Creatinine 0.58 L (0.6-1.2) mg/dl Est Cr Clr Drug Dosing 132.0 ml/min eGFR 106.81 BUN/Creatinine Ratio 13.8 (10-20) Glucose 122 H (70-99(Fasting)) mg/dl Calcium 9.6 (8.6-10.3) mg/dl Total Bilirubin 0.6 (0.2-1.0) mg/dl AST 40 H (13-39) U/L ALT 53 H (7-52) U/L Alkaline Phosphatase 74 (34-104) U/L Total Protein 7.6 (6.0-8.3) gm/dl Albumin 4.4 (3.4-5.0) gm/dl Globulin 3.2 (2.5-4.0) gm/dl Albumin/Globulin Ratio 1.4 (0.9-2) Nasal Influ A H1 2009 PCR DETECTED A (NotDetected) Adenovirus (PCR) Not Detected (NotDetected) B. pertussis DNA (PCR) Not Detected (NotDetected) B.parapertussis DNA PCR Not Detected (NotDetected) C. pneumoniae DNA (PCR) Not Detected (NotDetected) Coronavirus OC43 (PCR) Not Detected (NotDetected) Coronavirus HKU1 (PCR) Not Detected (NotDetected) Coronavirus 229E (PCR) Not Detected (NotDetected) SARS-CoV-2 (PCR) Not Detected (NotDetected) Coronavirus NL63 (PCR) Not Detected (NotDetected) Human Metapneumovir PCR Not Detected (NotDetected) Influenza Type B (PCR) Not Detected (NotDetected) M. pneumoniae (PCR) Not Detected (NotDetected) Parainfluenza 1 (PCR) Not Detected (NotDetected) Parainfluenza 2 (PCR) Not Detected (NotDetected) Parainfluenza 3 (PCR) Not Detected (NotDetected) Parainfluenza 4 (PCR) Not Detected (NotDetected) RSV (PCR) Not Detected (NotDetected) Entero/Rhino (PCR) Not Detected (NotDetected) Diagnostic Findings Chest X-Ray 08/30/24 07:27 EXAM: XR chest 1V not portable CLINICAL HISTORY: cough and shortness of breath TECHNIQUE: X-ray image of the chest obtained in 1 frontal projection. COMPARISON: Prior X-ray dated 07/04/2017 for comparison. FINDINGS: Pulmonary Parenchyma: Prominent bilateral parahilar markings. No evidence of consolidation, collapse, or focal opacities. No pulmonary nodules identified. No evidence of pleural effusion or pleural thickening. Heart and Mediastinum: Heart size and shape are normal. No mediastinal widening or masses. No hilar or mediastinal lymphadenopathy. Bony Thorax: Bony thorax appears intact without fractures or deformities. Soft Tissues: Soft tissues overlying the chest wall are unremarkable. IMPRESSION: 1. Prominent bilateral parahilar markings likely congestion. 2. No evidence of pulmonary consolidation or focal opacities, stable. Electronically signed by Fco Helm 08-30-2024 08:25 AM Medications Administered Discontinued Medications Albuterol (Albut/Ipratrop 3mg/0.5mg Neb 3 Ml Vial) 3 ml NEB NOW STA; Protocol Stop: 08/30/24 09:40 Last Admin: 08/30/24 10:06 Dose: 3 ml Documented By: JAMI Benzonatate (Benzonatate 100 Mg Capsule) 100 mg PO NOW ONE Stop: 08/30/24 09:40 Last Admin: 08/30/24 10:05 Dose: 100 mg Documented By: JAMI Sodium Chloride (Nss) 1,000 mls @ 999 mls/hr IV .Q1H1M ONE Stop: 08/30/24 09:29 Last Admin: 08/30/24 08:37 Dose: 999 mls/hr Documented By: JAMI Famotidine (Pepcid 20mg Iv Push) 20 mg in 5 mls @ 2.5 mls/min IV NOW STA Stop: 08/30/24 08:30 Last Admin: 08/30/24 08:37 Dose: 2.5 mls/min Documented By: JAMI Acetaminophen (Ofirmev) 1,000 mg in 100 mls @ 400 mls/hr IV NOW STA Stop: 08/30/24 08:43 Last Infusion: 08/30/24 09:32 Dose: Infused Documented By: Admin: 08/30/24 08:38 Dose: 400 mls/hr Documented By: JAMI Ondansetron HCl (Ondansetron Inj 2 Mg/Ml 2 Ml Vial) 4 mg IV NOW STA Stop: 08/30/24 08:30 Last Admin: 08/30/24 08:37 Dose: 4 mg Documented By: JAMI Supervising Physician Co-Signing Physician Notes Attending addendum: The patient was seen and examined in medical telemetry unit She has been complaining of headache, cough and fever for the last 3 days and the condition got worse today She does not have any wheezing and denies any shortness of breath She was noted to have influenza A infection On examination Lying in bed without any acute distress except ongoing dry cough Remains hemodynamically stable and saturating normally on room air Chestminimally decreased breath sounds without any wheezing and or crackles Abdomenbenign Extremitiesno edema Her admission labs, EKG and imaging studies reviewed She is noted to have influenza A infection with unremarkable labs and imaging studies She does not have any other significant medical condition She has been getting symptomatic management for cough and headache May need short course of steroid if the condition does not improve in a day or 2 Agree with assessment and plan as outlined above by Italia Aponte PA-C and take the full responsibility of care in the hospital Dr Lesa Segundo (3) Hypertension Hypertension type: unspecified Qualified Code(s): I10 - Essential (primary) hypertension (4) GERD (gastroesophageal reflux disease) Esophagitis presence: esophagitis presence not specified Qualified Code(s): K21.9 - Gastro-esophageal reflux disease without esophagitis (5) Asthma Asthma complication type: unspecified Asthma persistence: intermittent Asthma severity: mild Qualified Code(s): J45.20 - Mild intermittent asthma, uncomplicated
[2024-08-30] MEDS ORDERED: ONDANSETRON INJ 2 MG/ML 2 ML VIAL IV PRN (11:41)
[2024-08-30] MEDS: SODIUM CHLORIDE 0.9% 1,000 ML IV SCH (11:53)
[2024-08-30] MEDS: ACETAMINOPHEN 325 MG TAB PO PRN (11:53)
[2024-08-30] MEDS: PANTOprazole 40 MG/10 ML SYR IV SCH (12:09)
[2024-08-30] MEDS: ALBUT/IPRATROP 3MG/0.5MG NEB 3 ML VIAL NEB SCH (13:04)
--- NOTE | 2024-08-30 13:48 | Electrocardiogram Report ---
Test Reason : Blood Pressure : */* mmHG Vent. Rate : 102 BPM Atrial Rate : 102 BPM P-R Int : 138 ms QRS Dur : 82 ms QT Int : 350 ms P-R-T Axes : 63 -49 16 degrees QTcB Int : 456 ms Sinus tachycardia Left anterior fascicular block Low voltage QRS Poor R wave progression, consider anterior TX vs. lead placement vs. LVH Abnormal ECG When compared with ECG of 04-Jul-2017 13:19, No significant change Confirmed by Soy Busch ([id number]) on 08/30/2024 1:48:01 PM Referred By: REFERRED SELF Confirmed By: Soy Busch
[2024-08-30] MEDS: guaiFENesin/DEXTROM SYRUP 200MG/20MG 10ML UDC PO PRN (15:51)
[2024-08-30] MEDS: BENZONATATE 100 MG CAPSULE PO PRN (20:22)
[2024-08-30] MEDS ORDERED: guaiFENesin 600 MG TABCR PO SCH (21:00)
[2024-08-30] MEDS: CALAMINE/PRAMOXINE LOTION 180 APPLN/180 ML BTL EXT SCH (21:48)
[2024-08-31 06:43] LABS: Alanine Aminotransferase 45 U/L (7-52); Albumin Level 3.7 gm/dl (3.4-5.0); Alkaline Phosphatase 65 U/L (34-104); Anion Gap 7 (3-11); Aspartate Aminotransferase 38 U/L (13-39); BUN Creatinine Ratio 11.3 (10-20); Bilirubin,Total 0.4 mg/dl (0.2-1.0); Blood Urea Nitrogen 6 mg/dl (6-23); Calcium 8.9 mg/dl (8.6-10.3); Carbon Dioxide 25 mmol/L (21-32); Chloride 110 mmol/L (98-107); Creatinine Clr Calc Pharmacy 144.4 ml/min; Glucose 118 mg/dl (70-99(Fasting)); Magnesium 1.9 mg/dl (1.7-2.4); Potassium 3.7 mmol/L (3.5-5.1); Sodium 142 mmol/L (136-145); Total Protein 6.6 gm/dl (6.0-8.3)
[2024-08-31] MEDS: diphenhydrAMINE Capsule 25 MG CAP PO ONE (08:17)
[2024-08-31] MEDS: ENOXAPARIN INJ 40 MG/0.4 ML SYR SQ SCH (08:35)
[2024-08-31] MEDS: SERTRALINE HCL 50 MG TABLET PO SCH (08:36)
[2024-08-31] MEDS: LOSARTAN POTASSIUM 25 MG TAB PO SCH (08:36)
[2024-08-31] MEDS: diphenhydrAMINE Capsule 25 MG CAP ONE (08:52)
[2024-08-31 09:11] LABS: Basophils # (auto) 0.04 K/uL (0.00-0.20); Basophils % (auto) 1.1 %; Eosinophils # (auto) 0.04 K/uL (0.00-0.50); Eosinophils % (auto) 1.1 %; Hematocrit (blood only) 39.2 % (37.0-47.0); Hemoglobin 13.2 g/dl (12.0-16.0); Immature Granulocytes # (auto) 0.01 K/uL (0.01-0.20); Immature Granulocytes % (auto) 0.3 %; Lymphocytes # (auto) 1.12 K/uL (1.20-3.40); Lymphocytes % (auto) 29.6 %; Mean Corpuscular Hemoglobin 30.4 pg (25.0-34.0); Mean Corpuscular Hgb Conc 33.7 g/dL (32.0-36.0); Mean Corpuscular Volume 90.3 fL (80.0-100.0); Mean Platelet Volume 9.5 fL (9.4-12.4); Monocytes # (auto) 0.34 K/uL (0.11-0.59); Neutrophils # (auto) 2.23 K/uL (1.40-6.50); Neutrophils % (auto) 58.9 %; Platelet Count 167 K/uL (130-400); RDW Coefficient of Variation 13.2 % (11.5-14.5); RDW Standard Deviation 43.7 fL (36.4-46.3); Red Blood Count 4.34 M/uL (4.20-5.40); White Blood Count 3.78 K/ul (4.8-10.8)
[2024-08-31] MEDS ORDERED: ALBUT/IPRATROP 3MG/0.5MG NEB 3 ML VIAL NEB PRN (10:18)
--- NOTE | 2024-08-31 15:13 | Hospitalist Progress Note ---
Date of Service August 31, 2024 Assessment & Plan (1) Influenza A: (2) Hypoxia: (3) Hypertension: (4) GERD (gastroesophageal reflux disease): (5) Asthma: (6) Anxiety and depression: Plan This is a 54 y/o female with HTN, dyslipidemia, GERD, and prior history of allergy-induced asthma who presented to the ED today with progressive flu-like symptoms. Work-up in the ED was positive for influenza A. In the ED, she was also noted to be hypoxic at rest with oxygen sats in the mid-80s. Pulseox improved with 2L of O2 but due to the hypoxia, pt was referred for admission. Pt was given a DuoNeb with partial improvement but still significant chest tightness. Nausea has improved with famotidine and Zofran. #Influenza A #Hypoxia, resolved - on room air today - DuoNebs Q6 hrs scheduled and prn - Guaifenesin 600 mg BID - Prn anti-tussives - Isolation precautions - encourage PO intake - PT/OT ordered, likely ready for discharge tomorrow, patient did not feel safe going home #Vomiting #Dehydration (mild) - Continue prn anti-emetics - regular diet today #Hypertension - losartan outpatient #GERD - switch to PO today #Mood disorder - Continue outpatient sertraline once N/V improves Feeding/fluids:regular Analgesia: tylenol Sedation: na Thromboprophylaxis: lovenox Head up position: na Ulcer prophylaxis: protonix Glycemic control: na Spontaneous breathing trial: on room air Bowel care: start miralax prn Indwelling catheter removal: na Deescalation of antibiotics: na I spent a total of 40 minutes in direct patient care, including [id number] time with the patient and/or family, reviewing medical records, ordering and reviewing diagnostic tests, and coordinating care with other healthcare providers. This time includes: history taking, physical examination, medical decision making, counseling, ECG interpretation, imaging interpretation, lab interpretation, orders, and education, excluding time spent in the performance of separately billed services. Admission and Anticipated Discharge Date Admission Date: August 30, 2024 Subjective patient seen and examined at bedside. Patient is doing okay today. She does feel better than yesterday. She continues to have weakness and does not feel safe going home today. Discussed her being on room air and being able to go home, however she wants to work with physical therapy Review of Systems Review of Systems: CONSTITUTIONAL: Patient denies fevers, chills, sweats and weight changes. EYES: Patient denies any visual symptoms. EARS, NOSE, AND THROAT: No difficulties with hearing. No symptoms of rhinitis or sore throat. CARDIOVASCULAR: Patient denies chest pains, palpitations, orthopnea and paroxysmal nocturnal dyspnea. RESPIRATORY: No dyspnea on exertion, no wheezing or cough. GI: No nausea, vomiting, diarrhea, constipation, abdominal pain, hematochezia or melena. : No urinary hesitancy or dribbling. No nocturia or urinary frequency. No abnormal urethral discharge. MUSCULOSKELETAL: weakness NEUROLOGIC: No chronic headaches, no seizures. Patient denies numbness, tingling or weakness. PSYCHIATRIC: Patient denies problems with mood disturbance. No problems with anxiety. ENDOCRINE: No excessive urination or excessive thirst. DERMATOLOGIC: Patient denies any rashes or skin changes. Physical Exam Physical Exam: Gen: A&O 3 NAD HEENT: NCAT, EOMI, not icteric. External ears normal. No rhinorrhea. Moist mucous membranes. Neck: Supple, full range of motion, no observable masses, No meningeal sign. Lungs: trace rhonchi bilaterally, worse on right CV: RRR, no edema. Abdomen: Soft, nondistended, No rebound tenderness. MSK: No joint swelling, no redness. Skin: No rashes, petechiae, lesions. Normal color per patient. Neuro: Normal Gait, Grossly intact. Psych: Appropriate for situation. Results & Data Results & Data Vital Signs (Past 12 Hours) Vital Signs Temp Pulse Pulse Resp BP Pulse Ox O2 Del Method 08/31/24 13:55 88 08/31/24 10:59 37.6 C H 90 16 137/78 93 Room Air 08/31/24 07:55 36.6 C 78 14 166/68 H 94 Room Air 08/31/24 07:42 37.3 C 81 20 144/78 H 93 Room Air 08/31/24 07:35 85 17 98 Room Air 08/31/24 07:00 83 FiO2 08/31/24 13:55 08/31/24 10:59 08/31/24 07:55 08/31/24 07:42 08/31/24 07:35 21 08/31/24 07:00 Laboratory Results - personally reviewed, no leukocytosis, creatinine at baseline Medications Administered Acetaminophen (Acetaminophen 325 Mg Tab) 650 mg PO Q4H PRN PRN Reason: Pain or Fever Stop: 09/29/24 11:40 Last Admin: 08/31/24 14:20 Dose: 650 mg Documented By: ТАТЬЯНА Admin: 08/31/24 08:04 Dose: 650 mg Documented By: ТАТЬЯНА Admin: 08/30/24 20:22 Dose: 650 mg Documented By: Admin: 08/30/24 11:53 Dose: 650 mg Documented By: MELONIE Benzonatate (Benzonatate 100 Mg Capsule) 100 mg PO TID PRN PRN Reason: Cough Stop: 09/29/24 11:40 Last Admin: 08/31/24 08:04 Dose: 100 mg Documented By: ТАТЬЯНА Admin: 08/30/24 20:22 Dose: 100 mg Documented By: GET Calamine/Pramoxine (Calamine/Pramoxine Lotion 180 Appln/180 Ml Btl) 1 appln EXT BID [facility] Stop: 09/02/24 20:59 Last Admin: 08/31/24 08:01 Dose: 1 appln Documented By: ТАТЬЯНА Admin: 08/30/24 21:48 Dose: 1 appln Documented By: GET Enoxaparin Sodium (Enoxaparin Inj 40 Mg/0.4 Ml Syr) 40 mg SQ QAM [facility] Stop: 09/30/24 08:59 Last Admin: 08/31/24 08:35 Dose: 40 mg Documented By: MADHAV Co-signed By: LANEY Guaifenesin/Dextromethorphan (Guaifenesin/Dextrom Syrup 200mg/20mg 10ml Udc) 10 ml PO Q6H PRN PRN Reason: Cough Stop: 09/29/24 12:40 Last Admin: 08/31/24 08:01 Dose: 10 ml Documented By: ТАТЬЯНА Admin: 08/31/24 00:00 Dose: 10 ml Documented By: Admin: 08/30/24 15:51 Dose: 10 ml Documented By: MELONIE Pantoprazole Sodium (Protonix) 40 mg in 10 mls @ 5 mls/min IV DAILY NOEMI Stop: 09/29/24 11:59 Last Admin: 08/31/24 08:35 Dose: 5 mls/min Documented By: MADHAV Co-signed By: LANEY Admin: 08/30/24 12:09 Dose: 5 mls/min Documented By: MELONIE Losartan Potassium (Losartan Potassium 25 Mg Tab) 25 mg PO DAILY [facility] Stop: 09/30/24 08:59 Last Admin: 08/31/24 08:36 Dose: 25 mg Documented By: MADHAV Co-signed By: LANEY Sertraline HCl (Sertraline Hcl 50 Mg Tablet) 50 mg PO DAILY [facility] Stop: 09/30/24 08:59 Last Admin: 08/31/24 08:36 Dose: 50 mg Documented By: MADHAV Co-signed By: LANEY (3) Hypertension Hypertension type: unspecified Qualified Code(s): I10 - Essential (primary) hypertension (4) GERD (gastroesophageal reflux disease) Esophagitis presence: esophagitis presence not specified Qualified Code(s): K21.9 - Gastro-esophageal reflux disease without esophagitis (5) Asthma Asthma complication type: unspecified Asthma persistence: intermittent Asthma severity: mild Qualified Code(s): J45.20 - Mild intermittent asthma, uncomplicated
[2024-08-31] MEDS: POLYETHYLENE (MIRALAX) 17 GM PACK PO PRN (15:34)
[2024-08-31] MEDS: DICLOFENAC SOD 1% GEL 100 GM TUBE EXT SCH (21:27)
[2024-09-01] MEDS: ALUMINUM/MAGNESIUM/SIMETH (MAALOX MAX) 30 ML UDC PO STA (00:37)
[2024-09-01 07:32] LABS: Hematocrit (blood only) 41.3 % (37.0-47.0); Hemoglobin 13.9 g/dl (12.0-16.0); Mean Corpuscular Hemoglobin 30.3 pg (25.0-34.0); Mean Corpuscular Hgb Conc 33.7 g/dL (32.0-36.0); Mean Corpuscular Volume 90.2 fL (80.0-100.0); Mean Platelet Volume 9.8 fL (9.4-12.4); Platelet Count 185 K/uL (130-400); RDW Coefficient of Variation 13.1 % (11.5-14.5); RDW Standard Deviation 43.4 fL (36.4-46.3); Red Blood Count 4.58 M/uL (4.20-5.40); White Blood Count 3.54 K/ul (4.8-10.8)
[2024-09-01 07:41] LABS: BUN Creatinine Ratio 14.3 (10-20); Calcium 9.6 mg/dl (8.6-10.3); Creatinine Clr Calc Pharmacy 155.6 ml/min; Potassium 3.5 mmol/L (3.5-5.1)
[2024-09-01] MEDS ORDERED: guaiFENesin 600 MG TABCR PO SCH (15:15)
[2024-09-01 15:27] VITALS: PULSE 96; RESP 16; TEMP 99.5; O2SAT 97
--- NOTE | 2024-09-01 15:49 | XRay Report ---
XR chest 1V portable CLINICAL HISTORY: cough, flu, r/o pneumonia COMPARISON STUDY: 08/30/2024 FINDINGS: Heart size and pulmonary vasculature are normal. No effusion or consolidation. IMPRESSION: No pneumonia seen. ACT 112: Negative or not required by law. Electronically signed by: Bucky Pinedo M.D. 09/01/2024 3:48 PM
[2024-09-01] MEDS: BENZONATATE 100 MG CAPSULE PO ONE (15:58)
[2024-09-01] MEDS: predniSONE 20 MG TAB PO STA (15:58)
[2024-09-01 16:09] VITALS: BP 121/66
--- NOTE | 2024-09-01 16:10 | Hospitalist Progress Note ---
Date of Service September 01, 2024 Assessment & Plan (1) Influenza A: (2) Hypoxia: (3) Hypertension: (4) GERD (gastroesophageal reflux disease): (5) Asthma: (6) Anxiety and depression: Plan per admitting service notes with addendum: This is a 54 y/o female with HTN, dyslipidemia, GERD, and prior history of allergy-induced asthma who presented to the ED today with progressive flu-like symptoms. Work-up in the ED was positive for influenza A. In the ED, she was also noted to be hypoxic at rest with oxygen sats in the mid-80s. Pulseox improved with 2L of O2 but due to the hypoxia, pt was referred for admission. Pt was given a DuoNeb with partial improvement but still significant chest tightness. Nausea has improved with famotidine and Zofran. #Influenza A #Hypoxia, resolved #Acute Bronchitis - on room air today - DuoNebs Q6 hrs scheduled and prn - Guaifenesin 600 mg BID - Prn anti-tussives - Isolation precautions - encourage PO intake - PT/OT ordered, likely ready for discharge tomorrow, patient did not feel safe going home / CXR no pneumonia given supportive care, out of the window for Tamiflu weaned off oxygen given 1 dose Prednisone 40mg for acute bronchitis discharge plan: Prednisone 40mg daily x 3 more days Tessalon Perles PRN Mucinex BID x 7 days #Vomiting #Dehydration (mild) - resolved #Hypertension - losartan outpatient #GERD - switch to PO today #Mood disorder - Continue outpatient sertraline once N/V improves Disposition: d/c home PCP in 1 week Admission and Anticipated Discharge Date Admission Date: August 30, 2024 Subjective ff up for diplopia, etc seen resting in bed, comfortable not in distress still having dry cough but no shortness of breath, chest pain, dizziness, palpitations no problems with ambulating no other symptoms Review of Systems Review of Systems: all noted and negative except for above Physical Exam Physical Exam: General- oriented x 3, not in distress, speaks in sentences with no effort or accessory muscle use Eyes- anicteric Neck- no JVD Lungs- clear breath sounds bilaterally, no rales/wheezes Heart- normal rate, regular rhythm; no murmurs Abdomen- normal bowel sounds, nondistended, soft, nontender Extremities- no pretibial edema, no calf tenderness Neuro- alert, oriented x 3; no gross focal neurologic deficits Skin- warm & dry Results & Data Results & Data Vital Signs (Past 12 Hours) Vital Signs Temp Pulse Pulse Resp BP BP Pulse Ox 09/01/24 16:04 37.5 C 96 H 16 121/66 151/82 H 97 09/01/24 15:27 37.5 C 96 H 16 151/82 H 97 09/01/24 12:02 09/01/24 11:45 37.3 C 94 H 20 145/73 H 93 09/01/24 09:28 09/01/24 07:28 79 09/01/24 07:26 37.6 C H 86 16 138/78 95 O2 Del Method O2 Del Method 09/01/24 16:04 09/01/24 15:27 Room Air 09/01/24 12:02 Room Air 09/01/24 11:45 Room Air 09/01/24 09:28 Room Air 09/01/24 07:28 09/01/24 07:26 Room Air all noted and reviewed including below (3) Hypertension Hypertension type: unspecified Qualified Code(s): I10 - Essential (primary) hypertension (4) GERD (gastroesophageal reflux disease) Esophagitis presence: esophagitis presence not specified Qualified Code(s): K21.9 - Gastro-esophageal reflux disease without esophagitis (5) Asthma Asthma complication type: unspecified Asthma persistence: intermittent Asthma severity: mild Qualified Code(s): J45.20 - Mild intermittent asthma, uncomplicated
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
== END 2024-09-01 16:59 | disposition home or self-care (01) | DRG 195 ==
LOC: ED 07:09 → 2W 10:43 → SUATTDRO 10:43 → 2W 11:16